=== PATIENT | female | born 1955 | race Caucasian/White ===

== ENCOUNTER 2022-06-19 06:47 | Inpatient (IN) | payer OTHER, SELFPAY ==
[2022-06-19] VITALS (13 sets, daily range): BP systolic 116–154; BP diastolic 71–87; PULSE 86–97; RESP 16; TEMP 36.4–36.9; O2SAT 87–100; BMI 29.2
--- NOTE | 2022-06-19 01:21 | HP.PCM.HOS_ITS ---
HPI - General General Date of Admission: 06/19/22 Date of Service: 06/19/22 Chief Complaint: right hip pain, mechanical fall HPI Narrative JACK JIMENEZ, is a 66 F with no significant PMH who presents via the ED on 06/19/2022 with a complaint of mechanical fall and right hip pain. SHe was washing off her front steps, and tripped and fell. She landed on her right hip and had subsequent pain and inability to ambulate. She denied any lightheade dness, palpitations, dizziness, nausea, vomiting or diarrhea. She went to an outside hospital ED where imaging done showed a right femoral neck fracture. CBC done was significant for wbc of 19k, but there was no clear evidence of infection with normal urinalysis and no fever or chills. Review of systems was otherwise negative. She was transferred to [facility] for orthopedic evaluation. OS ED spoke to Dr Bob who agreed to see the patient once admitted at [facility]. Vitals in the ED were BP of 154/71, WI of 88, RR of 16 and temp of 98.4F, with patient saturating at 100% on room air. She is being admitted to be managed for right femoral neck fracture due to mechanical fall. [facility] Home Medications famotidine 20 mg tablet (Pepcid) 20 mg PO DINNER GERD 06/19/22 [History Last Taken 06/17/22] naproxen sodium 220 mg capsule (Aleve) 220 mg PO DAILY pain 06/19/22 [History Last Taken 06/18/22] Allergy/AdvReac Type Severity Reaction Status Date / Time Penicillins Allergy Anaphylaxis Verified 06/19/22 01:29 Social History Smoking Status: Current every day smoker tobacco type: cigarettes ROS Constitutional Constitutional: Denies anorexia, chills, fatigue, fever(s), malaise or weakness Eyes Eyes: Denies change in vision ENT HEENT: Denies dysphagia, headache(s) or sore throat Cardiovascular Cardiovascular: Denies chest pain, dyspnea on exertion, edema, lightheadedness, orthopnea, palpitations, paroxysmal nocturnal dyspnea, rapid heart rate or syncope Respiratory/Chest Respiratory/Chest: Denies productive cough, shortness of breath at rest or shortness of breath with exertion Gastrointestinal Gastrointestinal: Denies abdominal pain, constipation, diarrhea, dyspepsia, nausea or vomiting Genitourinary Genitourinary: Denies burning urination, dysuria, urinary frequency or urinary hesitancy Musculoskeletal Musculoskeletal: Denies arthralgias or joint pain Neurologic Neurologic: Denies confusion, dizziness, focal weakness, headache(s), numbness or seizures Psychiatric Psychiatric: Denies anxiety Endocrine Endocrinology: Denies change in body appearance Hematologic/Lymphatic Hematologic/Lymphatic: Denies anemia Physical Exam Const alert, oriented x3 and no apparent distress General Appearance: cooperative HEENT normocephalic, head/scalp atraumatic, hearing grossly normal bilaterally and moist oral mucous membranes Mouth: oral and palatal mucosa normal Eyes PERRL, EOMs intact bilaterally and conjunctivae normal Neck no lymphadenopathy and supple Resp normal respiratory effort and clear to auscultation bilaterally Cardio regular rate, regular rhythm, S1 normal heart sound, S2 normal heart sound and no murmurs GI normal to inspection, nondistended, normoactive bowel sounds, soft to palpation and non-tender Extremity Extremity Narrative: RLE shortened, externally rotated. Unable to flex or extend RLE at hip Neuro oriented x3 and CN's II-XII intact bilaterally Sensorium / Orientation: awake Psych affect normal Assessment & Plan Assessment/Plan (1) Fracture of femoral neck, right: (2) Fall: PLAN: Plan #Right femoral neck fracture due to mechanical fall * admit to med surg * check CBC, BMP * doesnt have any significant PMH and hasnt seen a doctor in years * hydrate gently with IVF * PT/OT consult * orthopedic surgery consulted * keep NPO, for likely surgery later today * PO tylenol, PO oxycodone and IV morphine prn for pain * NSQIP risk calculator shows a below average risk of serious complication or cardiac complication. Patient risk stratified for surgery at low to moderate risk. * #Elevated BP * BP in the 150s. Not a known hypertensive * pain may also be playing a role * IV hydralazine prn * if BP remains elevated, to start oral BP meds * #Debility due to mechanical fall * as above * PT/OT consulted. Fall precautions * DVT prophylaxis: lovenox Code status: full code * Patient counseled extensively about different types of CODE STATUS including full code, DNR CCA and DNR CCA. Patient elects to be full code. * Total [id number] time 16 minutes. Charges/Coding Visit Charges Inpatient E&M: 60510 Init Hosp L3 Procedures Hospitalists Procedures: 78689 Advncd Care Plan 30 Min
[2022-06-19 02:09] LABS: Absolute Lymphocyte Count 1.57 X10^3/uL (0.83-4.51); Absolute Neutrophil Count 8.6 X10^3/uL (2.0-7.7); Basophil# 0.02 X10^3/uL; Basophil% 0.2 % (0-1); Eosinophil# 0.03 X10^3/uL; Eosinophils% 0.3 % (0-5); Hematocrit 36.9 % (37-47); Hemoglobin 12.4 g/dL (12.0-15.0); Lymphocyte # 1.57 X10^3/ul (0.83-4.51); Lymphocyte % 14.4 % (19-41); Mean Corp Hgb Conc 33.6 g/dL (32-36); Mean Corpuscular Hgb 29.4 pg (27.0-32.0); Mean Corpuscular Volume 87.4 fL (81-99); Monocyte% 6.4 % (0-10); NRBC Flagged by Analyzer 0 % (0-5); Neutrophil # 8.55 X10^3/uL (2.7-7.7); Neutrophil % 78.2 % (47-70); Platelet Count 297 K/mm3 (150-450); RBC Distribution Width CV 14.2 % (11.6-14.6); RBC Distribution Width SD 45.3 fl (35.1-43.9); Red Blood Count 4.22 M/mm3 (4.2-5.4); White Blood Count 10.9 K/mm3 (4.4-11.0)
[2022-06-19] MEDS: Morphine 2 MG/ML Syringe IV ×3 (02:39→10:29)
[2022-06-19] MEDS: 0.9% Normal Saline 1,000 ML 125 ML IV ×2 (02:39→10:05)
[2022-06-19 02:41] LABS: Anion Gap 7 (5-15); BUN 14 mg/dL (7-18); BUN/Creat Ratio 27.6 RATIO (10-20); Calcium,Total 8.9 mg/dL (8.5-10.1); Chloride 109 mmol/L (98-107); Creatinine, Serum 0.51 mg/dL (0.55-1.02); EST Glomerular Filtration Rate 130 mL/min (>60); Est Glom Filt Rate - Afr Amer 157 mL/min (>60); Estimated Creatinine Clearance 108.37 ml/min; Glucose 122 mg/dL (74-106); Potassium 3.5 mmol/L (3.5-5.1); Sodium Level 139 mmol/L (136-145)
[2022-06-19 04:10] LABS: Absolute Lymphocyte Count 1.09 X10^3/uL (0.83-4.51); Absolute Neutrophil Count 8.9 X10^3/uL (2.0-7.7); Basophil# 0.02 X10^3/uL; Basophil% 0.2 % (0-1); Eosinophil# 0.02 X10^3/uL; Eosinophils% 0.2 % (0-5); Hemoglobin 12.3 g/dL (12.0-15.0); Lymphocyte # 1.09 X10^3/ul (0.83-4.51); Lymphocyte % 10.2 % (19-41); Mean Corp Hgb Conc 33.2 g/dL (32-36); Mean Corpuscular Hgb 29.1 pg (27.0-32.0); Mean Corpuscular Volume 87.7 fL (81-99); Monocyte# 0.64 X10^3/uL; NRBC Flagged by Analyzer 0 % (0-5); Neutrophil # 8.93 X10^3/uL (2.7-7.7); Neutrophil % 83.1 % (47-70); Platelet Count 293 K/mm3 (150-450); RBC Distribution Width CV 14.2 % (11.6-14.6); RBC Distribution Width SD 45.7 fl (35.1-43.9); Red Blood Count 4.22 M/mm3 (4.2-5.4); White Blood Count 10.7 K/mm3 (4.4-11.0)
[2022-06-19 04:25] LABS: Anion Gap 8 (5-15); BUN 13 mg/dL (7-18); BUN/Creat Ratio 31.2 RATIO (10-20); Calcium,Total 8.4 mg/dL (8.5-10.1); Chloride 108 mmol/L (98-107); Creatinine, Serum 0.42 mg/dL (0.55-1.02); EST Glomerular Filtration Rate 163 mL/min (>60); Est Glom Filt Rate - Afr Amer 197 mL/min (>60); Estimated Creatinine Clearance 131.59 ml/min; Glucose 122 mg/dL (74-106); Potassium 3.4 mmol/L (3.5-5.1); Sodium Level 139 mmol/L (136-145)
--- NOTE | 2022-06-19 06:00 | EKG12_ITS ---
Test Reason : AM EKG Blood Pressure : / mmHG Vent. Rate : 092 BPM Atrial Rate : 092 BPM P-R Int : 150 ms QRS Dur : 084 ms QT Int : 366 ms P-R-T Axes : 056 016 047 degrees QTc Int : 452 ms Normal sinus rhythm Normal ECG No previous ECGs available Confirmed by JAYDON FERNANDEZ, KALI ([id number]), greeting card editor MACHO MEJÍA ([id number]) on 06/20/2022 9:20:42 AM Referred By: Confirmed By:KALI INTERIANO MD
[2022-06-19] MEDS: Potassium Chloride Oral Tablet 20 MEQ 40 MEQ PO (10:05)
[2022-06-19] MEDS: oxyCODONE 5 MG Tablet PO (10:11)
--- NOTE | 2022-06-19 10:20 | CASEMGMT ---
COLLEEN PADILLA Face to Face with patient for initial transition planning/care coordination assessment. RN CM introduced self and role at [facility]. Patient lying in bed, alert and oriented. Patient willing to participate in assessment and is able to answer all questions appropriately. Care providers, pharmacy, and demographics verified. Patient wishes to discharge to rehab unit or SNF for additional rehab. Patient states she has no further needs or concerns at this time. SW updated regarding requests for RU vs SNF. CM to follow for discharge planning needs that may arise. PCP: Domingo Specialists: none Preferred Pharmacy: [facility] Insurance: UMR Prescription Benefit: yes Living Will/HPOA: none LNOK: father, brother, sister Living Arrangements: Patient lives alone [place] with 12 steps and no railing to enter. Patient states she was independent at home. Transportation: slef, brother, sister DME/HHC: Patient states she has cane, walker, and access to wheelchair. Patient denies previous HHC or SNF. Disposition Plan: TBD pending course of treatment and progress with therapy. Anticipate RU vs SNF. Ban VALENTINN, RN, CM
--- NOTE | 2022-06-19 13:30 | HIP_PTH ---
PATIENT: JACK JIMENEZ LOC: MS3 U#:[id number] AGE/SX: 66/F ROOM: RI318 RE06/19/[address]: Dr. Emily Alvarez MD : 1955 BED: 1 DIS: 06/20/2022 SPEC #: [id number] RECD: 06/20/22 07:50 STATUS: CAITLIN MANDEL #: [id number] MILVIA: 06/19/22 13:[address]: Gerardo Bob DEPT: SURGICAL PATHOLOGY RECD BY: Irene Holder ENTERED: 06/20/22 08:06 SP TYPE: TOTAL HIP OTHR DR: MD Dr. Jesus Miller DO Dr. Joseph Borruso, DO Dr. Nana Yaa Koram, MD Tissues: Hip, NOS Procedures: Decalcification bone/plaque Surgery Specimen Level IV Comments: @ Ordering doctor for DEC edited from to DR.JBORRU Núñez by RAFA at 06/20/22 1309 @ Ordering doctor for SUV edited from to DR.JBORRU Núñez by RAFA at 06/20/22 1309 @ Submitting doctor edited from to DR.JBORRU Wilton CRAIG at 06/20/22 1307 HEADER OPERATION: Right hip hemiarthroplasty PRE-OP DIAGNOSIS: Fracture of right femoral neck TISSUE SUBMITTED: Right femoral head MICROSCOPIC DIAGNOSIS Bone and tissue of right hip, total hip resection: Consistent with organizing fracture callous. AM:dottie 06/23/2022 MICROSCOPIC DESCRIPTION Slides are reviewed. GROSS DESCRIPTION Received is one container labeled with the patient's name and designated right femoral head. The specimen consists of a hendrickson femoral head measuring 4.5 x 4.5 x 3 cm. The articular surface is smooth. Resection margin is irregular and hemorrhagic. Also present in the specimen container are three variable sized detached pieces of bone measuring in aggregate 5 x 4.5 x 2 cm. Accounting Specialist sections are submitted in two cassettes after decalcification as follows: 1 - detached pieces of bone, 2 - femoral head. / RUDI:dottie 06/20/2022 TC:5 CPT: 40874, 66593
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
[2022-06-19] MEDS: Lactated Ringers 1,000 ML 125 ML IV ×2 (15:30→21:07)
--- NOTE | 2022-06-19 15:54 | PCM.OP.BLANK ---
Operative Report Date of Procedure: 06/19/22 Preoperative diagnosis: Right hip femoral neck fracture displaced Postoperative diagnosis: Same Procedure: Right hip hemiarthroplasty Implants: Driftwood Accolade II stem size 7 132 degree neck angle -3 neck length 49 mm outer diameter bipolar head Anesthesia: General l EBL: 250 cc Complications: None Condition: Stable to PACU Indication for procedure: This is a 66-year-old female patient status post ground-level fall after tripping on a hose went to [facility] and request to be transferred to [facility] for definitive care of her displaced right femoral neck fracture. plans for definitive hemiarthroplasty were discussed including risks benefits and alternatives of the procedure were reviewed with the patient including risk of bleeding infection nerve artery tissue damage need for further surgery continue pain postoperative hip precaution restrictions leg length discrepancy and dislocation. Procedure: Patient was met in the preoperative holding area once again the operative extremity was identified by both patient and physician and was marked. Patient was met by anesthesia and brought to the operating room where anesthesia was started . The patient was then positioned in the lateral decubitus position on a well-padded pegboard with an axillary roll. All bony prominences were checked and padded. The patient was prepped and draped in the usual sterile fashion. A timeout was called to ensure the proper patient procedure and extremity were being contemplated. Anatomic landmarks were palpated and marked for a standard posterior lateral approach. A timeout was called to ensure the proper patient procedure and extremity were being contemplated. A 10 blade scalpel was used to make a posterior incision through the skin and subcutaneous tissue. In retractors were used and electrocautery was used to maintain meticulous hemostasis and dissect full-thickness flaps until the gluteal fascia was reached. The gluteal fascia was incised in line with the gluteal fibers. The bursal tissue was then freed from the underside and a Charnley retractor was placed. The fatpad was elevated off of the external rotators with electrocautery and the external rotators were dissected off of the greater trochanter including the piriformis and were tagged with #1 Ethibond for later repair. The joint capsule opened with posterior trapdoor technique. A femoral neck cutting guide was used to vasile the neck with a Bovie and an oscillating saw was used to complete the femoral neck cut. the fracture was visualized and with the use of a corkscrew and a skid the femoral head was removed and sized. We then trialed with the matching sizes . Hohmann was placed around the lesser trochanter. A femoral elevator was used. As well as a pointed wide Hohmann around the lesser trochanter and a Hohmann to help retract the gluteus medius. A box chisel was used to remove excess lateral neck followed by a canal finder and a lateralizing reamer. This was followed by sequential broaches. Attention was made of the version within the canal. Once the final broach was seated we then trialed and reduced the hip it was determined that a 132 degree neck angle with a -3 neck length was the appropriate size. We then checked stability with shuck testing as well as flexion and interminal rotation then proceeded with hip extension and checked leg lengths at the knees and heels. At this point trials were removed. The femoral stem was inserted. We re-trialed and then proceeded to impact the femoral head onto the Arturo taper. We then surgically reduce the hip check stability again and leg lengths and were satisfied. irricept rinse was allowed to sit for 1 minutes while everyone changed their gloves. Thorough irrigation was performed. Followed by closure of the external rotators with #2 FiberWire followed by closure of gluteal fascia with #1 Ethibond. 0 Vicryl fat stitches and 2-0 Vicryl subcutaneous stitches and ernestina in the skin. Dressing was applied in the form of silverlon dressing and an abduction pillow was placed. Patient tolerated the procedure well there was no intraoperative complications all counts were correct and the patient was brought back to the PACU in stable condition
--- NOTE | 2022-06-19 16:40 | RAD_ITS ---
STUDY: X-RAY - PELVIS AND RIGHT HIP REASON FOR EXAM: Female, 66 years old. Post Op -- AP both hips on single incky/lateral of op hip PACU TECHNIQUE: XR Hip Unilateral with Pelvis when performed; 2-3 Views COMPARISON: None. FINDINGS: There is no fracture or dislocation. There is anatomic alignment. The soft tissue planes are preserved. Total hip arthroplasty. Skin ernestina are seen along the anterior lateral aspect of the hip. There is an air-fluid level seen in the operative site. Joint space is preserved. Subcutaneous air is noted. There is a metal sideplate transfixing the left acetabulum, symphysis pubis, and left iliac bone. There are cortical screws holding the plate in place. RAD/Hip Min 2 Views (Portable) IMPRESSION: Successful total hip arthroplasty. Electronically Signed: Catracho Vasquez MD at 17:12 EDT ,
[2022-06-19] MEDS: Famotidine 20 MG Tablet PO (18:17)
[2022-06-19] MEDS: Calcium Carbonate 500 MG Tablet PO (18:20)
[2022-06-20 02:19] VITALS: BP 150/86; PULSE 87; RESP 18; TEMP 36.6; O2SAT 92
[2022-06-20 02:23] VITALS: BMI 29.2
[2022-06-20] MEDS: 0.9% Saline Lock 10 ML Syringe IV ×2 (02:24→06:19)
[2022-06-20] MEDS: oxyCODONE 5 MG Tablet PO ×2 (02:24→08:16)
[2022-06-20 06:13] VITALS: BMI 29.2
[2022-06-20] MEDS: APIXABAN 2.5 MG TABLET PO (06:20)
[2022-06-20 08:04] VITALS: BP 142/82; PULSE 100; RESP 18; TEMP 36.9; O2SAT 94
[2022-06-20] MEDS: Calcium Carbonate 500 MG Tablet PO ×3 (08:17→16:53)
[2022-06-20 08:21] LABS: Absolute Lymphocyte Count 1.53 X10^3/uL (0.83-4.51); Absolute Neutrophil Count 8.6 X10^3/uL (2.0-7.7); Basophil# 0.03 X10^3/uL; Basophil% 0.3 % (0-1); Eosinophil# 0.06 X10^3/uL; Eosinophils% 0.5 % (0-5); Hematocrit 31.3 % (37-47); Hemoglobin 10.1 g/dL (12.0-15.0); Lymphocyte # 1.53 X10^3/ul (0.83-4.51); Lymphocyte % 13.4 % (19-41); Mean Corp Hgb Conc 32.3 g/dL (32-36); Mean Corpuscular Hgb 28.9 pg (27.0-32.0); Mean Corpuscular Volume 89.7 fL (81-99); Mean Platelet Vol. 9.3 fl (6.2-12.0); Monocyte# 1.11 X10^3/uL; Monocyte% 9.7 % (0-10); NRBC Flagged by Analyzer 0 % (0-5); Neutrophil # 8.63 X10^3/uL (2.7-7.7); Neutrophil % 75.7 % (47-70); Platelet Count 258 K/mm3 (150-450); RBC Distribution Width CV 14.1 % (11.6-14.6); Red Blood Count 3.49 M/mm3 (4.2-5.4); White Blood Count 11.4 K/mm3 (4.4-11.0)
[2022-06-20 08:50] LABS: ALB/GLOB Ratio 0.7 RATIO (0.9-2.4); AST(SGOT) 20 U/L (15-37); Alanine Aminotransfer ALT/SGPT 17 U/L (13-56); Albumin, Serum 2.7 g/dL (3.2-5.0); Alkaline Phosphatase 79 U/L (45-117); Anion Gap 7 (5-15); BUN 7 mg/dL (7-18); BUN/Creat Ratio 13.2 RATIO (10-20); Calcium,Total 8.7 mg/dL (8.5-10.1); Chloride 107 mmol/L (98-107); Creatinine, Serum 0.53 mg/dL (0.55-1.02); EST Glomerular Filtration Rate 123 mL/min (>60); Est Glom Filt Rate - Afr Amer 149 mL/min (>60); Estimated Creatinine Clearance 104.28 ml/min; Globulin 3.8 g/dL (2.2-4.2); Glucose 105 mg/dL (74-106); Potassium 4.2 mmol/L (3.5-5.1); Protein, Total 6.5 g/dL (6.4-8.2); Sodium Level 138 mmol/L (136-145)
[2022-06-20 10:13] VITALS: BMI 29.2
--- NOTE | 2022-06-20 10:33 | PN.HOSP_ITS ---
Subjective Subjective Follow-up on right hip fracture, status post hemiarthroplasty: Patient was seen and examined. Her pain is fairly controlled. Denied any new complaints. She was able to walk to the bathroom today. Objective Data Objective Data Vital Signs: Vital Signs Temp Pulse Resp BP Pulse Ox O2 Del Method O2 Flow Rate 98.5 F 100 18 142/82 H 94 Room Air 2 06/20/22 08:04 06/20/22 08:04 06/20/22 08:04 06/20/22 08:04 06/20/22 08:04 06/20/22 08:35 06/19/22 22:30 Oxygen Flow Rate (L/min) 2 Oxygen Delivery Method Room Air Weight: 84.6 kg Body Mass Index (BMI) 29.2 Intake & Output: Intake and Output for Last 24 Hours 06/18/22 06/19/22 06/20/22 23:59 23:59 23:59 Intake Total 3731.25 / 4131.25 1850 / 1850 Output Total 1250 / 1550 1300 / 1300 Balance 2481.25 / 2581.25 550 / 550 Lab / Micro Data Result Diagrams: 06/20/22 08:11 06/20/22 08:11 Labs: Laboratory Results - last 24 hr 06/20/22 08:11: WBC 11.4 H, RBC 3.49 L, Hgb 10.1 L, Hct 31.3 L, MCV 89.7, MCH 28.9, MCHC 32.3, RDW Std Deviation 46.0 H, RDW Coeff of Anette 14.1, Plt Count 258, MPV 9.3, Immature Gran % (Auto) 0.400, Neut % (Auto) 75.7 H, Lymph % (Auto) 13.4 L, [place] % (Auto) 9.7, Eos % (Auto) 0.5, Baso % (Auto) 0.3, Absolute Neuts (auto) 8.6 H, Absolute Lymphs (auto) 1.53, Nucleated RBC % 0 06/20/22 08:11: Sodium 138, Potassium 4.2, Chloride 107, Carbon Dioxide 24.0, Anion Gap 7, BUN 7, Creatinine 0.53 L, Estim Creat Clear Calc 104.28, Est GFR (MDRD) Af Amer 149, Est GFR (MDRD) Non-Af 123, BUN/Creatinine Ratio 13.2, Glucose 105, Calcium 8.7, Total Bilirubin 0.70, AST 20, ALT 17, Alkaline Phosphatase 79, Total Protein 6.5, Albumin 2.7 L, Globulin 3.8, Albumin/Globulin Ratio 0.7 L Radiography Diagnostic Testing: Radiology Impression Hip X-Ray 06/19/22 16:40 IMPRESSION: Successful total hip arthroplasty. Electronically Signed: Catracho Vasquez MD at 17:12 EDT Reading Location ID and State: [facility] / [place] , Service support , Physical Exam Narrative Physical exam: General: Alert, Oriented x3, Cooperative, No apparent distress HEENT: Atraumatic Oral: Moist Mucosa Neck: Supple Lungs: Clear to auscultation Cardiovascular: HS I+II, regular, no murmurs Abdomen: Bowel Sounds Present, Soft, Non Tender Extremities:Tenderness in right hip area, cooling mat over the right hip Skin: No rashes, No breakdown Neurological: Grossly intact Psych/Mental Status: Appropriate Assessment & Plan Assessment/Plan (1) Fracture of femoral neck, right: PLAN: Plan 1. Postop day #1 status post right hip hemiarthroplasty for femoral neck fracture, mechanical, traumatic, status post fall Pain is fairly controlled, continue with PT and OT evaluation as well orthopedic recommendations 2. GERD, on famotidine 3. DVT PPx- Eliquis Charges/Coding Visit Charges Inpatient E&M: 56400 Subs Hosp L2
--- NOTE | 2022-06-20 10:55 | PCM.PN.ORT ---
Subjective Subjective Patient seen and examined doing well no fevers chills nausea vomiting shortness of breath or chest pain. Ambulated some in surgery. Objective Data Objective Data Vital Signs: Vital Signs Temp Pulse Resp BP Pulse Ox O2 Del Method O2 Flow Rate 98.5 F 100 18 142/82 H 94 Room Air 2 06/20/22 08:04 06/20/22 08:04 06/20/22 08:04 06/20/22 08:04 06/20/22 08:04 06/20/22 08:35 06/19/22 22:30 Oxygen Flow Rate (L/min) 2 Oxygen Delivery Method Room Air Weight: 186 lb 8.177 oz Body Mass Index (BMI) 29.2 Intake & Output: Intake and Output for Last 24 Hours 06/18/22 06/19/22 06/20/22 23:59 23:59 23:59 Intake Total 3731.25 / 4131.25 1850 / 1850 Output Total 1250 / 1550 1300 / 1300 Balance 2481.25 / 2581.25 550 / 550 Lab / Micro Data Result Diagrams: 06/20/22 08:11 06/20/22 08:11 Labs: Laboratory Results - last 24 hr 06/20/22 08:11: WBC 11.4 H, RBC 3.49 L, Hgb 10.1 L, Hct 31.3 L, MCV 89.7, MCH 28.9, MCHC 32.3, RDW Std Deviation 46.0 H, RDW Coeff of Anette 14.1, Plt Count 258, MPV 9.3, Immature Gran % (Auto) 0.400, Neut % (Auto) 75.7 H, Lymph % (Auto) 13.4 L, [place] % (Auto) 9.7, Eos % (Auto) 0.5, Baso % (Auto) 0.3, Absolute Neuts (auto) 8.6 H, Absolute Lymphs (auto) 1.53, Nucleated RBC % 0 06/20/22 08:11: Sodium 138, Potassium 4.2, Chloride 107, Carbon Dioxide 24.0, Anion Gap 7, BUN 7, Creatinine 0.53 L, Estim Creat Clear Calc 104.28, Est GFR (MDRD) Af Amer 149, Est GFR (MDRD) Non-Af 123, BUN/Creatinine Ratio 13.2, Glucose 105, Calcium 8.7, Total Bilirubin 0.70, AST 20, ALT 17, Alkaline Phosphatase 79, Total Protein 6.5, Albumin 2.7 L, Globulin 3.8, Albumin/Globulin Ratio 0.7 L Radiography Diagnostic Testing: Radiology Impression Hip X-Ray 06/19/22 16:40 IMPRESSION: Successful total hip arthroplasty. Electronically Signed: Catracho Vasquez MD at 17:12 EDT Reading Location ID and State: [facility] / [place] , Service support , Physical Exam Const alert, oriented x3 and no apparent distress Extremity Extremity Narrative: Right hip dressing clean dry and intact compartments soft neurovascular intact EHL tibialis anterior gastrocsoleus intact sensation light touch palpable pedal pulses right lower extremity Assessment & Plan Assessment/Plan (1) Fracture of femoral neck, right: PLAN: Plan Postop day #1 right hip hemiarthroplasty for femoral neck fracture Eliquis 2.5 mg twice daily for 4 weeks postop SCDs RAJ hose Dressing to be left on and undisturbed for 7 days postop then may remove prior to first shower should have incision clean daily with antibacterial soap at that point and replaced with dry dressing daily PT OT weightbearing as tolerated with hip precautions Follow-up in the office 2 weeks postop for wound check staple removal Should start outpatient PT JANE if being discharged home Oxycodone 5 to 10 mg every 4 hours as needed pain
[2022-06-20 14:13] VITALS: BMI 29.2
--- NOTE | 2022-06-20 14:28 | CASEMGMT ---
Addendum entered by Carolin Yip 06/20/22 15:38: Precert obtained and physician updated. Plan to d/c today. Pt updated and agreeable. Nursing updated. Disposition: [facility] Addendum entered by Carolin Yip 06/20/22 14:41: Social work [facility] is able to accept pt. Pt updated and agreeable. Precert has been started. Plan: [facility], pending precARIS Jamison Original Note: Social Work SW met with pt and introduced self and role of SW. SW discussed discharge plans and how pt did with therapy today. Pt does not feel she can return home at this time but will need short term rehab. A list of Inpatient Rehab and SNF providers including quality and resource use data and consistent with the patient?s preferred geographic region, medical needs, and insurance network were provided from the [employer] Guide. Pt preferred provider is [facility]. Referral made to [facility]. Pt will need precertification. Plan: [facility] Inpatient Rehab, pending acceptance and precert [facility]
[2022-06-20 15:17] VITALS: BP 131/73; PULSE 104; RESP 18; TEMP 37; O2SAT 94
--- NOTE | 2022-06-20 15:29 | DCINST_ITS ---
Discharge Instructions Diet Discharge Diet: No restrictions Activity Discharge Activity: Return to Normal Activity Weight Bearing Status: Weight bearing as tolerated Follow Up Care Test Results: Test results from this visit will be discussed in further detail at your follow- up appointment, if applicable. Discharge Plan Admission Admit Date/Time: 06/19/22 06:47 Primary Reason for Your Visit: Acute hip fracture Attending Provider: Emily Alvarez Primary Care Provider: Jesus Lane Consulting Providers: Gerardo Bob ; Marie Patrick Instructions Additional Instructions / Restrictions: Eliquis 2.5 mg twice daily for 4 weeks postop SCDs RAJ hose Dressing to be left on and undisturbed for 7 days postop then may remove prior to first shower should have incision clean daily with antibacterial soap at that point and replaced with dry dressing daily PT OT weightbearing as tolerated with hip precautions Follow-up in the office 2 weeks postop for wound check staple removal Discharge Orders/Prescriptions Prescriptions: No Action famotidine [Pepcid] 20 mg Tablet 20 mg PO DINNER naproxen sodium [Aleve] 220 mg Capsule 220 mg PO DAILY Referrals / Follow Up: Jesus Lane DO [Primary Care Provider] - Gerardo Bob DO [Med Staff - Active Staff] - Within 2 Weeks Disposition Disposition (needs filled in before D/C Order can be placed): Inpatient Rehab Unit/Facility
--- NOTE | 2022-06-20 15:31 | DS.PCM_ITS ---
Providers Date of Admission: 06/19/22 Date of Discharge: 06/20/22 Primary Care Physician: Dr. Jesus Lane, Consultations 06/19/22 01:42 Consult: Orthopedics Routine Consulting Provider: Gerardo Bob Reason for Consult: right hip fracture due to mechanical fall EMERGENT Consult: No MD Notified: Yes Date Notified: 06/19/22 Time Notified: 01:43 Method of Notification: Text Reason For Visit: R HIP FRACTURE Diagnosis Discharge Diagnosis (1) Fracture of femoral neck, right: Status: Acute Code(s): S72.001A - Fracture of unspecified part of neck of right femur, initial encounter for closed fracture Plan 1. Acute right hip fracture 2. GERD Medications at Discharge Home Medications famotidine 20 mg tablet (Pepcid) 20 mg PO DINNER GERD 06/19/22 naproxen sodium 220 mg capsule (Aleve) 220 mg PO DAILY pain 06/19/22 apixaban 2.5 mg tablet (Eliquis) 2.5 mg PO BID #0 tabs 06/20/22 oxycodone 5 mg tablet 5 mg PO Q4H PRN PRN Pain Score 4-5 #0 tabs 06/20/22 Hospital Course Operations None and total hip replacement (right, 06/19/22) Procedures None Summary of Care Provided Minutes Spent on Discharge: 45 Hospital Course: 66-year-old female with past medical history of GERD who comes in after a fall and experienced severe right hip pain. Patient stated that she was washing her front steps when she tripped and fell and landed on her right hip. She had sudden severe pain and inability to move. She was seen in outside hospital where x-ray showed right femoral neck fracture. She was transferred to [facility] for orthopedic evaluation. Patient was admitted to the [facility] floor, pain controlled. Orthopedics was consulted in emergency room. She underwent right hip hemiarthroplasty. Patient was seen by PT and OT and skilled for discharge to acute rehab. Physical Exam Narrative See progress note on the day Weight / BMI Weight Weight: 84.6 kg Body Mass Index (BMI) 29.2 ABG / Lab / Microbiology Data Result Diagrams: 06/20/22 08:11 06/20/22 08:11 Laboratory: Laboratory Results - last 24 hr 06/20/22 08:11: WBC 11.4 H, RBC 3.49 L, Hgb 10.1 L, Hct 31.3 L, MCV 89.7, MCH 28.9, MCHC 32.3, RDW Std Deviation 46.0 H, RDW Coeff of Anette 14.1, Plt Count 258, MPV 9.3, Immature Gran % (Auto) 0.400, Neut % (Auto) 75.7 H, Lymph % (Auto) 13.4 L, [place] % (Auto) 9.7, Eos % (Auto) 0.5, Baso % (Auto) 0.3, Absolute Neuts (auto) 8.6 H, Absolute Lymphs (auto) 1.53, Nucleated RBC % 0 06/20/22 08:11: Sodium 138, Potassium 4.2, Chloride 107, Carbon Dioxide 24.0, Anion Gap 7, BUN 7, Creatinine 0.53 L, Estim Creat Clear Calc 104.28, Est GFR (MDRD) Af Amer 149, Est GFR (MDRD) Non-Af 123, BUN/Creatinine Ratio 13.2, Glucose 105, Calcium 8.7, Total Bilirubin 0.70, AST 20, ALT 17, Alkaline Phosphatase 79, Total Protein 6.5, Albumin 2.7 L, Globulin 3.8, Albumin/Globulin Ratio 0.7 L Radiography Diagnostic Testing: Radiology Impression Hip X-Ray 06/19/22 16:40 IMPRESSION: Successful total hip arthroplasty. Electronically Signed: Catracho Vasquez MD at 17:12 EDT Reading Location ID and State: [address] [place] [address] , Service support , D/C Instructions Discharge Diet: No restrictions Weight Bearing Status: Weight bearing as tolerated Meaningful Use Info Meaningful Use Diagnoses (Choose all that apply): None applicable Discharge Plan Admission Admit Date/Time: 06/19/22 06:47 Primary Reason for Your Visit: Acute hip fracture Attending Provider: Emily Alvarez Primary Care Provider: Jesus Lane Consulting Providers: Gerardo Bob ; Marie Patrick Instructions Additional Instructions / Restrictions: Eliquis 2.5 mg twice daily for 4 weeks postop SCDs RAJ hose Dressing to be left on and undisturbed for 7 days postop then may remove prior to first shower should have incision clean daily with antibacterial soap at that point and replaced with dry dressing daily PT OT weightbearing as tolerated with hip precautions Follow-up in the office 2 weeks postop for wound check staple removal Discharge Orders/Prescriptions Prescriptions: New Eliquis 2.5 mg Tablet 2.5 mg PO BID Qty: 0 0RF oxycodone 5 mg Tablet 5 mg PO Q4H PRN PRN (Reason: Pain Score 4-5) Qty: 0 0RF Continued famotidine [Pepcid] 20 mg Tablet 20 mg PO DINNER naproxen sodium [Aleve] 220 mg Capsule 220 mg PO DAILY Referrals / Follow Up: Jesus Lane DO [Primary Care Provider] - Gerardo Bob DO [Med Staff - Active Staff] - Within 2 Weeks Disposition Disposition (needs filled in before D/C Order can be placed): Inpatient Rehab Unit/Facility Charges/Coding Visit Charges Inpatient E&M: 54705 Disch Hosp
--- NOTE | 2022-06-20 16:35 | NURSING ---
Called report to Cheli MACIAS in Rehab unit. Pt will go to room 7 and can be sent anytime.
[2022-06-20] MEDS: Famotidine 20 MG Tablet PO (16:53)
== END 2022-06-20 17:04 | DRG 522 ==
PROVIDERS: Orthopaedic Surgery; Admitting Provider Student in an Organized Health Care Education/Training Program; PCP Family Medicine; Visit Provider Internal Medicine
PROC: 0SRR0JA Replacement of Right Hip Joint, Femoral Surface with Synthetic Substitute, Uncemented, Open Approach (ICD-10-PCS; CPT 27125; principal; 2022-06-19 13:10)
DX: S72.001A Fracture of unspecified part of neck of right femur, initial encounter for closed fracture (principal); F17.210 Nicotine dependence, cigarettes, uncomplicated; K21.9 Gastro-esophageal reflux disease without esophagitis; W01.10XA Fall on same level from slipping, tripping and stumbling with subsequent striking against unspecified object, initial encounter; Y92.007 Garden or yard of unspecified non-institutional (private) residence as the place of occurrence of the external cause; Y93.H9 Activity, other involving exterior property and land maintenance, building and construction; R03.0 Elevated blood-pressure reading, without diagnosis of hypertension; R53.81 Other malaise; Z79.899 Other long term (current) drug therapy
CPT/HCPCS: 36415; 73502; 80048; 80053; 85025; 86850; 86900; 86901; 88305; 88307; 88311; 93005; 97162; 97166; C1776; J7030; J7120; A4216; J2405

== ENCOUNTER 2022-06-20 17:20 | Inpatient (IN) | payer OTHER, SELFPAY ==
[2022-06-20 17:51] VITALS: BP 119/64; PULSE 111; RESP 14; TEMP 37.2; O2SAT 92; BMI 29.2
[2022-06-20 19:37] VITALS: O2SAT 96
[2022-06-20 20:05] VITALS: BP 130/67; PULSE 109; RESP 18; TEMP 36.6; O2SAT 96
[2022-06-20] MEDS: oxyCODONE 5 MG Tablet PO (20:16)
[2022-06-20] MEDS: APIXABAN 2.5 MG TABLET PO (20:41)
[2022-06-20] MEDS: Senna/Docusate Sodium 1 Tablet 2 TABLET PO (20:41)
[2022-06-21] MEDS: oxyCODONE 5 MG Tablet PO ×4 (03:47→21:06)
[2022-06-21 05:53] LABS: Hematocrit 28.6 % (37-47); Hemoglobin 9.3 g/dL (12.0-15.0); Mean Corp Hgb Conc 32.5 g/dL (32-36); Mean Corpuscular Hgb 28.7 pg (27.0-32.0); Mean Corpuscular Volume 88.3 fL (81-99); Mean Platelet Vol. 10.7 fl (6.2-12.0); Platelet Count 245 K/mm3 (150-450); RBC Distribution Width CV 14.1 % (11.6-14.6); RBC Distribution Width SD 45.7 fl (35.1-43.9); Red Blood Count 3.24 M/mm3 (4.2-5.4); White Blood Count 11.9 K/mm3 (4.4-11.0)
[2022-06-21] MEDS: 0.9% Saline Lock 10 ML Syringe IV (05:59)
[2022-06-21 06:38] LABS: ALB/GLOB Ratio 0.7 RATIO (0.9-2.4); AST(SGOT) 17 U/L (15-37); Alanine Aminotransfer ALT/SGPT 16 U/L (13-56); Albumin, Serum 2.5 g/dL (3.2-5.0); Alkaline Phosphatase 81 U/L (45-117); Anion Gap 9 (5-15); BUN 9 mg/dL (7-18); BUN/Creat Ratio 18.4 RATIO (10-20); Calcium,Total 8.5 mg/dL (8.5-10.1); Chloride 104 mmol/L (98-107); Creatinine, Serum 0.49 mg/dL (0.55-1.02); EST Glomerular Filtration Rate 135 mL/min (>60); Est Glom Filt Rate - Afr Amer 163 mL/min (>60); Estimated Creatinine Clearance 112.79 ml/min; Globulin 3.8 g/dL (2.2-4.2); Glucose 126 mg/dL (74-106); Magnesium 2.1 mg/dL (1.6-2.6); Phosphorus 3.4 mg/dL (2.5-4.9); Potassium 3.7 mmol/L (3.5-5.1); Protein, Total 6.3 g/dL (6.4-8.2); Sodium Level 135 mmol/L (136-145)
[2022-06-21] MEDS: Menthol/Lanolin/Calamine/Znox 113 GM Tube 1 APPLIC TOPICAL ×2 (07:42→20:47)
[2022-06-21] MEDS: Senna/Docusate Sodium 1 Tablet 2 TABLET PO (07:42)
[2022-06-21] MEDS: APIXABAN 2.5 MG TABLET PO ×2 (07:42→20:46)
[2022-06-21] MEDS: Naproxen 250 MG Tablet PO (07:42)
[2022-06-21 09:00] VITALS: BP 115/61; PULSE 100; RESP 18; TEMP 36.8; O2SAT 95
[2022-06-21 10:00] VITALS: PULSE 101; RESP 16; O2SAT 98
--- NOTE | 2022-06-21 11:00 | PCM.HP.STD ---
HPI - General General Date of Admission: 06/20/22 Date of Service: 06/21/22 Chief Complaint: Debility due to hip fracture. HPI Narrative JACK JIMENEZ, is a 66 YO F with a PMH of GERD, tobacco dependence and OA who presented to [place] ED on 06/19/22 complaining of right hip pain after a mechanical fall. She was unable to ambulate. Imaging revealed a displaced right femoral neck fracture. She was transferred to [facility] for orthopedic evaluation by Dr. Bob and was admitted to the hospitalist service. Dr. Bob saw the pt and recommended a R hip hemiarthroplasty and Jack was in agreement. She was taken to surgery on 06/19/22. On 06/20/22 she was transferred to acute rehab for 3 hours of therapy daily to restore function at or near her level prior to the hip fracture. The EMR was reviewed. HGB dropped from 12.3 on 06/19 22 to 10.1 on 06/20/2022 due to expected blood loss with surgery and hydration (BUN/CREAT ratio at admission to [facility] was 31.2. Today the HGB is 9.3. She is complaining of reflux today.....it has been happening after Lunch. At home she takes a PPI or a H2B over the counter and sometimes uses TUMS. She is a smoker. She has tried quitting cold turkey in the past and the longest she has gone without smoking is 1 year. She tells me she likes to smoke. when I asked her why she went back to smoking in the past she told me that it helps to control the anxiety she gets at work. She sometimes has a hard time sleeping at night because she can not turn her brain off. We discussed starting a medication once a day to help control anxiety and she is agreeable to a trial of Sertraline. [facility] Medical History (Updated 06/21/22 @ 14:[address] Milana Fuentes DO) Anxiety GERD (gastroesophageal reflux disease) Rheumatoid arthritis Smoker Tobacco dependence due to cigarettes Home Medications famotidine 20 mg tablet (Pepcid) 20 mg PO DINNER GERD 06/19/22 [History Last Taken 06/17/22] naproxen sodium 220 mg capsule (Aleve) 220 mg PO DAILY pain 06/19/22 [History Last Taken 06/18/22] apixaban 2.5 mg tablet (Eliquis) 2.5 mg PO BID pain 06/20/22 [History Last Taken Unknown] oxycodone 5 mg tablet 5 mg PO Q4H PRN PRN Pain, Mild 06/20/22 [History Last Taken Unknown] Allergy/AdvReac Type Severity Reaction Status Date / Time Penicillins Allergy Anaphylaxis Verified 06/19/22 01:29 Surgical History S/P removal of ovarian cyst Status post hip surgery Social History Smoking Status: Current every day smoker tobacco type: cigarettes ROS Constitutional Constitutional: Denies anorexia, change in weight, chills, fatigue, fever(s), night sweats or weakness Eyes Eyes: Denies blurry vision, change in vision, eye pain or loss of vision ENT HEENT: Denies abnormal hearing, dysphagia, headache(s), hearing loss, nasal congestion or sore throat Cardiovascular Cardiovascular: Denies chest pain, dyspnea on exertion, edema, lightheadedness, orthopnea, palpitations, paroxysmal nocturnal dyspnea or syncope Respiratory/Chest Respiratory/Chest: Reports cough; Denies dyspnea, shortness of breath at rest, shortness of breath with exertion or wheezing Gastrointestinal Gastrointestinal: Reports other Details: Heartburn ; Denies abdominal pain, constipation, diarrhea, dyspepsia, hematemesis, hematochezia, nausea or vomiting Genitourinary Genitourinary: Denies dysuria, hematuria, nocturia, urinary frequency, urinary hesitancy, urinary incontinence or urinary urgency Musculoskeletal Musculoskeletal: Reports other Details: Pain in the R groin, buttock and and lateral hip from recent surgery. ; Denies back pain, joint pain, joint swelling or neck pain Integumentary Integumentary: Denies alopecia, jaundice, non-healing lesions or unusual bruising Neurologic Neurologic: Denies confusion, disequilibrium, dizziness, focal weakness, headache(s), paresthesias, seizures or tremor(s) Psychiatric Psychiatric: Reports anxiety; Denies depression, homicidal ideation or suicidal ideation Endocrine Endocrinology: Denies change in body appearance, polydipsia or polyuria Hematologic/Lymphatic Hematologic/Lymphatic: Denies easy bleeding, easy bruising or lymphadenopathy Allergic/Immunologic Allergic/Immunologic: Denies rhinitis, eczemia or asthma Vital Signs Vital Signs Vital Signs: 06/20/22 17:51 06/20/22 19:37 06/20/22 20:05 Temperature 98.9 F 97.9 F Temperature Source Oral Oral Pulse Rate 111 H 109 H Respiratory Rate 14 18 Respiratory Effort Respiratory Depth Respiratory Pattern Blood Pressure 119/64 130/67 H Blood Pressure Mean 82 88 Blood Pressure Source Monitor Blood Pressure Position Semi-Fowlers Blood Pressure Location Left Arm Pulse Ox 92 96 96 Oxygen Delivery Method Room Air Room Air Room Air 06/20/22 20:05 06/21/22 09:00 Temperature 98.2 F Temperature Source Temporal Pulse Rate 100 Respiratory Rate 18 Respiratory Effort Normal Respiratory Depth Normal Respiratory Pattern Normal Blood Pressure 115/61 Blood Pressure Mean 79 Blood Pressure Source Monitor Blood Pressure Position Semi-Fowlers Blood Pressure Location Right Arm Pulse Ox 95 Oxygen Delivery Method Room Air Room Air Weight Weight: 186 lb 8.177 oz Body Mass Index (BMI) 29.2 Physical Exam Const alert, oriented x3, no apparent distress, healthy appearing and well nourished General Appearance: cooperative, well kempt and well developed HEENT normocephalic and head/scalp atraumatic HEENT Narrative: Mucous membranes are dry. Eyes PERRL, EOMs intact bilaterally, conjunctivae normal and no scleral icterus Eyes Narrative: No discharge from the eye and no mattering of the eyelashes. Neck full ROM and no lymphadenopathy General: trachea midline Chest Chest: symmetrical chest wall rise Resp normal respiratory effort, normal air movement and no use of accessory muscles Effort and Inspection: able to speak in complete sentences Cardio regular rate, regular rhythm, S1 normal heart sound, S2 normal heart sound, no murmurs, no rub and no gallops GI normal to inspection, nondistended, normoactive bowel sounds, soft to palpation and non-tender GI Narrative: No guarding with palpation. She is c/o constipation and she received stool softeners and a laxative today. no CVA tenderness Extremity normal capillary refill, no calf tenderness and no pedal edema Extremity Narrative: The silver impregnated dressing which is applied postoperatively will remain on another few days before we can remove it. There is no erythema surrounding the dressing and the dressing is dry with no discharge present on the dressing. She has intact sensation to the right foot. Skin General Skin Exam: no breakdown Rashes: no rashes Neuro oriented x3, CN's II-XII intact bilaterally, moves all extremities, no focal motor deficits and no sensory deficits noted Psych mental status grossly normal, thought process normal, cooperative, affect normal, speech normal, activity/motor behavior normal, denies hallucinations, denies homicidal ideation and denies suicidal ideation Appearance: grossly normal Attitude: calm Activity / Motor Behavior: appropriate eye contact Results Lab / Micro Data Result Diagrams: 06/21/22 05:13 06/21/22 05:13 Labs: Laboratory Results - last 24 hr 06/21/22 05:13: WBC 11.9 H, RBC 3.24 L, Hgb 9.3 L, Hct 28.6 L, MCV 88.3, MCH 28.7, MCHC 32.5, RDW Std Deviation 45.7 H, RDW Coeff of Anette 14.1, Plt Count 245, MPV 10.7 06/21/22 05:13: Sodium 135 L, Potassium 3.7, Chloride 104, Carbon Dioxide 22.0, Anion Gap 9, BUN 9, Creatinine 0.49 L, Estim Creat Clear Calc 112.79, Est GFR (MDRD) Af Amer 163, Est GFR (MDRD) Non-Af 135, BUN/Creatinine Ratio 18.4, Glucose 126 H, Calcium 8.5, Phosphorus 3.4, Magnesium 2.1, Total Bilirubin 0.70, AST 17, ALT 16, Alkaline Phosphatase 81, Total Protein 6.3 L, Albumin 2.5 L, Globulin 3.8, Albumin/Globulin Ratio 0.7 L Assessment & Plan Assessment/Plan (1) Physical debility: PLAN: PT/OT (2) Tobacco dependence due to cigarettes: PLAN: She started smoking again after quitting to help control anxiety. Will start Sertraline to see if this will help her quit. She wants to quit. Smoking cessation counseling was given. (3) Acute postoperative anemia due to expected blood loss: (4) Hyponatremia: (5) Elevated fasting blood sugar: PLAN: We will check a hemoglobin A1c. (6) Fall: PLAN: Mechanical fall (7) Fracture of femoral neck, right: (8) GERD (gastroesophageal reflux disease): PLAN: Increase famotidine to twice daily. encouraged her to stop smoking because nicotine increases reflux by decreasing LES pressure. (9) Anxiety: PLAN: Start Sertraline 50 mg PO daily in the AM PLAN: Plan PLAN PT for gait stability OT for ADL's Analgesics as needed - she tells me that pain is adequately managed. Bowel protocol Fall precautions Assess for Anxiety/Depression - start Sertraline GI prophylaxis with Pepcid 20 mg p.o. twice daily DVT prophylaxis with Eliquis 2.5 mg p.o. twice daily for 4 weeks post op - DC on July 18. Follow up with PCP and Dr. Bob following DC from Rehab. I told her about the smoking cessation program at [facility] if she is unable to stop smoking. AM lab including CMP, CBC, Mag and Phos - personally reviewed. Will also order a HGBA1C. She lives by herself. Unit Exclusion This patient is an acute care inpatient being housed in the excluded unit because of capacity issues related to the disaster or emergency.: Yes Charges/Coding Visit Charges Inpatient E&M: 85353 Init Hosp L2
--- NOTE | 2022-06-21 14:11 | REHABEVAL_ITS ---
Admission Information Primary Diagnosis:: Physical debility secondary to a recent fall resulting in a right hip fracture. She had a right hemiarthroplasty. She lives alone. Status Changes from Prescreening?: No changes Identified Actual Problem List:: Skin Intergrity, Pain, ALteration in Cmfrt, Bowel, Constipation, Mobility Impaired, Self Care Deficit and Alteration-Leisure Activ. Potential Problem List:: DVT, Bleeding, Infection, UTI, Aspiration, Falls, Skin Integrity and Depression Risk of Complications DVT: RAJ Hose, Sequential Compression Device and - (Apixaban 2.5 mg twice daily x4 weeks) Bleeding: Monitor Lab Values, Nursing to Teach Precautions for anti-coagulation therapy., Wound, if applicable, to be assessed every shift. and Stroke patients assessed for lethargy or change in status. Infection: Clinical Staff to Monitor for S/S of infection: and S/S of infection include fever, redness, warmth, etc. Urinary Tract Infection: Monitor for frequency, burning, discomfort, or incontinence. and Nursing will obtain urine sample for urinalysis and C&S when ordered. Aspiration: Clinical staff will monitor for coughing, drooling, congestion., Speech will evaluate swallowing and dsyphasia. and Nursing will monitor patient swallowing during meals. Falls: Patient will be evaluated for Fall Precautions and Patient will be placed on Fall Precautions as indicated per protocol. Skin Breakdown: Nursing will assess skin daily using assessment tool. and Nursing will place on Skin Breakdown Precautions as indicated. Pain: Clinical staff will assess patient's pain level per protocol., Medications will be given, if needed, and the pain level reassessed. and Other methods: Massage, distraction, decrease stimulus, etc. used PRN. Plan of Care Patient requires physician specializing in physical medicine and rehab oversight to provide close medical supervision of rehab issues including: Pain Management, Sleep Problems, Bowel and Bladder, Medical and co-morbidity Management, DVT prophylaxis, Rehabilitation Leadership and Coordination of treatment team Patient needs Physical Therapy: For a minimum of 1 hour and At least 5 out of 7 days Patient needs Physical Therapy to improve:: Mobility, Strengthening, Transfers, Stretching, ROM, Endurance, Stairs, Gait and Balance Patient needs Occupational Therapy: For a minimum of 1 hour and At least 5 out of 7 days Patient needs Occupational Therapy to improve ADL's incl.: Eating, Grooming, Bathing, Dressing, Toileting, Toilet transfers, Community Reintegration, Higher functioning activities, Household tasks, Adaptive Equipment, Splinting and Other activities as determined Patient requires 24/7 Rehabilitation Nursing for: Pain Issues, Identifying and preventing risk factors, Monitoring and reporting current medical conditions, Assisting with ambulation, transfer, and all ADL's, Teaching patients about disease process and medications, Family teaching, Providing safe environment, Bowel and Bladder Issues, Skin integrity and Medication Management Patient needs Fly Raiser Lock[employer]ch/ Case Management for: Discharge Planning, Arranging Home Equipment or Services and Family Interventions Patient needs Dietary and Nutrition Services for: Adequate Nutrition, Nutritional Supplements and Nutritional Education Goals Patient will remain: free from falls and or injury at time of discharge. Patient will perform bed mobility at: MOD I level of assist. Patient will complete transfers from bed to chair at: MOD I level of assist. Patient will ambulate: - (250 feet with a wheeled walker at mod I on various surfaces to allow patient to return home/community alone.) Patient will complete upper body dressing at: MOD I level of assist. Patient will complete lower body dressing at: MOD I level of assist. Patient will complete toileting at: MOD I level of assist. Patient will perform bathing at: MOD I level of assist. Patient will complete grooming at: MOD I level of assist. Patient will complete home management skills at: MOD I level of assist. Patient will achieve: 12 stairs (12 steps with 2 handrails at standby assist to allow access to her home entrance.) and - (1 curb step) Patient will have pain level of: of 3 or less Patient's skin will: remain intact Patient will receive: adequate nutrition. Discharge Planning Pt Prognosis for Sig. Practical Improv. w/in Reasonable Time: Good Estimated Length of stay (days): 21 Anticipated D/C Destination: Home with Home Health (Pt lives alone and may initially need HHC but, will progress to OP therapy.) Was Preadmission Assessment Accurate?: Yes
[2022-06-21 14:26] LABS: Hemoglobin A1c 5.7 % (3.8-5.6)
[2022-06-21] MEDS: Magnesium Hydroxide 30 ML UDC PO (16:30)
[2022-06-21 19:44] VITALS: BP 111/70; PULSE 115; RESP 18; TEMP 36.6; O2SAT 97
[2022-06-21] MEDS: Famotidine 20 MG Tablet PO (20:46)
[2022-06-21 20:49] VITALS: PULSE 108
[2022-06-22 02:12] VITALS: BP 111/70; PULSE 108; RESP 18; TEMP 36.6; O2SAT 97
[2022-06-22] MEDS: oxyCODONE 5 MG Tablet PO ×3 (05:41→20:57)
[2022-06-22] MEDS: Sertraline 50 MG Tablet PO (08:00)
[2022-06-22] MEDS: APIXABAN 2.5 MG TABLET PO ×2 (08:00→20:58)
[2022-06-22] MEDS: Naproxen 250 MG Tablet PO (08:00)
[2022-06-22] MEDS: Famotidine 20 MG Tablet PO ×2 (08:00→20:58)
[2022-06-22] MEDS: Menthol/Lanolin/Calamine/Znox 113 GM Tube 1 APPLIC TOPICAL ×2 (08:03→21:00)
[2022-06-22 08:06] VITALS: BP 111/63; PULSE 94; RESP 16; TEMP 36.8; O2SAT 96
--- NOTE | 2022-06-22 09:37 | CASEMGMT ---
Social Work IDT met with patient for Team meeting. Discussed patient's progress in PT/OT/SN. Educated to [facility] insurance with [employer] 06/22 and continued stay is not guaranteed. Pts goal is to return home alone. Barriers to DC are the 12 steps to get into the home and living alone. SW to continue to follow for DC planning. Will Reteam. Emely Castillo, [employer]PLIER TOPOGRAPHICAL SURVEYOR
--- NOTE | 2022-06-22 11:27 | PCM.PN.BLA ---
Progress Note Josy was seen on team rounds today. No family was able to participate. Afebrile VSS - HR has been increased into the low 100's, BP is WNL Maintaining appropriate oxygen saturation on RA Oral intake is not being recorded currently. Will order intake and outputs to be done daily. Discussed with nursing - no problems that need addressed Reviewed the PT/OT notes Medication list reviewed. She is c/o increased Left leg pain distal to the knee today. She has pain in the left calf when I dorsiflex the left foot. Denies pain in the left groin or anterior thigh. Denies CP and SOB. No hx of VTE. She is on apixaban 2.5 mg twice daily for DVT prophylaxis. Not having muscle cramps. Physical Exam Const Constitutional Narrative: Alert, appears to be in pain and uncomfortable. She is appropriate. HEENT HEENT Narrative: MM are actually more moist today than yesterday and she has been aware of increasing her fluid intake and she is trying. Resp Resp Narrative: Not tachypneic, no labored breathing, able to speak in complete sentences. CTA with good air exchange. Cardio Cardio Narrative: Tachycardic with occasional premature beats. Seems anxious. She is jumpy...when I touched her left foot she screamed out. I then told her I was going to touch both feet and she did not jump and had no pain in either foot. I dorsiflexed her left foot and asked if she had pain and she initially said no and then changed her mind and said yes. She had no pain with squeezing the left calf. There is no swelling of the left foot or ankle. She is c/o severe pain? Seems to be out of proportion to the physical findings. She tells me that when she is in pain or anxious her BP goes up on a routine basis. GI GI Narrative: Soft, NT, ND, normal BS's .......she had a BM after the laxative yesterday. Extremity Extremity Narrative: no swelling of the distal LLE Skin Skin Narrative: No rashes and no skin breakdown. Assessment & Plan Assessment/Plan (1) Physical debility: PLAN: Continue PT/OT. (2) Fall: (3) Fracture of femoral neck, right: (4) History of right hip hemiarthroplasty: (5) Acute postoperative anemia due to expected blood loss: (6) Anxiety: PLAN: I discussed smoking cessation with her yesterday and she told me that she has gone back to smoking in the past after quitting for up to a year to manage her stress. She agreed to trailing a medication to control anxiety and I started Sertraline. today she told the SW that she does not want to take the Sertraline. I think the anxiety is influencing her perception of pain. (7) Tachycardia: PLAN: This may be due to anxiety but the HR's are more increased now and she is actually better hydrated. Need to r/o VTE so will order a venous US of the LLE. Visit Charges Inpatient E&M: 26612 Subs Hosp L2
--- NOTE | 2022-06-22 11:59 | VDLE_ITS ---
Reason For Study: Pain RIGHT GSV is normal. CFV is compressible, spontaneous, phasic, competent and demonstrates normal augmentation. FV is compressible, spontaneous, phasic, competent and demonstrates normal augmentation. POP V is compressible, spontaneous, phasic, competent and demonstrates normal augmentation. T/P Trunk is compressible. PTV is compressible. RT PerV is compressible. Procedure This is a venous duplex using B-mode, color flow and spectral Doppler. Exam performed portable in patient room. A preliminary report was called and/or faxed to machinist set up. VL/Venous Duplex US, Unilateral Interpretation Summary Deep veins of the right lower extremity are patent and compressible segmentally . There is no evidence of right lower extremity deep vein thrombosis. The right great sapheno us vein appears patent and compressible segmentally. Ordering Physician: Milana Fuentes Referring Physician: Jesus Lane Performed By: Ban Cowan RVT
[2022-06-22 18:53] VITALS: BP 123/69; PULSE 91; RESP 18; TEMP 36.6; O2SAT 94
[2022-06-22 20:00] VITALS: O2SAT 96
[2022-06-23] MEDS: oxyCODONE 5 MG Tablet PO (03:54)
[2022-06-23 07:53] VITALS: BP 128/77; PULSE 94; RESP 18; TEMP 36.6; O2SAT 98
[2022-06-23] MEDS: APIXABAN 2.5 MG TABLET PO ×2 (08:42→20:13)
[2022-06-23] MEDS: Senna/Docusate Sodium 1 Tablet 2 TABLET PO ×2 (08:42→20:14)
[2022-06-23] MEDS: Naproxen 250 MG Tablet PO (08:42)
[2022-06-23] MEDS: Famotidine 20 MG Tablet PO ×2 (08:43→20:14)
[2022-06-23 19:30] VITALS: BP 131/69; PULSE 90; RESP 16; TEMP 36.6; O2SAT 98
[2022-06-23] MEDS: Arthritis Pain Compound 60 CLICK TUBE TOPICAL (20:09)
[2022-06-23] MEDS: Menthol/Lanolin/Calamine/Znox 113 GM Tube 1 APPLIC TOPICAL (20:10)
[2022-06-23 22:00] VITALS: PULSE 90; RESP 16; O2SAT 98
[2022-06-24 07:59] VITALS: BP 132/86; PULSE 87; RESP 16; TEMP 36; O2SAT 95
[2022-06-24] MEDS: APIXABAN 2.5 MG TABLET PO ×2 (08:43→20:35)
[2022-06-24] MEDS: Arthritis Pain Compound 60 CLICK TUBE TOPICAL ×2 (08:43→20:36)
[2022-06-24] MEDS: Naproxen 250 MG Tablet PO (08:43)
[2022-06-24] MEDS: Menthol/Lanolin/Calamine/Znox 113 GM Tube 1 APPLIC TOPICAL ×2 (08:43→20:35)
[2022-06-24] MEDS: Famotidine 20 MG Tablet PO ×2 (08:43→20:35)
[2022-06-24 10:00] VITALS: PULSE 87; RESP 16; O2SAT 95
[2022-06-24 19:50] VITALS: BP 112/65; PULSE 90; RESP 16; TEMP 36.4; O2SAT 100
[2022-06-24 20:35] VITALS: O2SAT 98
[2022-06-25 07:42] VITALS: O2SAT 99
[2022-06-25] MEDS: Naproxen 250 MG Tablet PO (07:45)
[2022-06-25] MEDS: Famotidine 20 MG Tablet PO ×2 (07:45→20:59)
[2022-06-25] MEDS: Menthol/Lanolin/Calamine/Znox 113 GM Tube 1 APPLIC TOPICAL ×2 (07:45→20:59)
[2022-06-25] MEDS: Arthritis Pain Compound 60 CLICK TUBE TOPICAL ×2 (07:45→21:00)
[2022-06-25] MEDS: APIXABAN 2.5 MG TABLET PO ×2 (07:45→20:59)
[2022-06-25] MEDS: Senna/Docusate Sodium 1 Tablet 2 TABLET PO (07:46)
[2022-06-25 08:19] VITALS: PULSE 97; O2SAT 99
[2022-06-25 08:57] VITALS: BP 128/76; PULSE 82; RESP 16; TEMP 36.4; O2SAT 96
[2022-06-25 20:03] VITALS: BP 121/69; PULSE 94; RESP 18; TEMP 36; O2SAT 98
[2022-06-25 22:00] VITALS: O2SAT 98
[2022-06-26 07:21] VITALS: BP 120/68; PULSE 80; RESP 16; TEMP 35.9; O2SAT 96
[2022-06-26] MEDS: Arthritis Pain Compound 60 CLICK TUBE TOPICAL ×2 (07:48→20:32)
[2022-06-26] MEDS: Naproxen 250 MG Tablet PO (07:49)
[2022-06-26] MEDS: APIXABAN 2.5 MG TABLET PO ×2 (07:49→20:34)
[2022-06-26] MEDS: Famotidine 20 MG Tablet PO (07:49)
[2022-06-26 08:30] VITALS: O2SAT 96
--- NOTE | 2022-06-26 11:10 | PCM.PROGNOTE ---
Subjective Subjective Afebrile VSS-blood pressure is well controlled. Maintaining appropriate oxygen saturation on RA Oral intake is good Discussed with nursing - no problems that need addressed Reviewed the PT/OT notes Medication list reviewed. Sitting in the chair at the bedside when I entered the room. Appears comfortable and in no distress. Smiling and pleasant. Not as fidgety as last week. she is sleeping well and pain is well controlled. She tells me that the arthritis cream is helping with the R knee pain. She denies SOB, CP, palpitations, N/V/abd cramping. she is still c/o heartburn even with the increase in the Famotidine to 20 mg BID. It is worst in the evening and towards bedtime. She denies having cravings to smoke and tells me that she is feeling less anxious. No dysuria and good bowel function. Objective Data Objective Data Vital Signs: Vital Signs Temp Pulse Resp BP Pulse Ox O2 Del Method 96.6 F L 80 16 120/68 96 Room Air 06/26/22 07:21 06/26/22 07:21 06/26/22 07:21 06/26/22 07:21 06/26/22 08:30 06/26/22 08:30 Oxygen Delivery Method Room Air Weight: 190 lb 4.143 oz Body Mass Index (BMI) 29.2 Intake & Output: Intake and Output for Last 24 Hours 06/24/22 06/25/22 06/26/22 23:59 23:59 23:59 Intake Total 1750 / 1750 1410 / 1410 400 / 400 Output Total 2075 / 2075 1500 / 1500 350 / 350 Balance -325 / -325 -90 / -90 50 / 50 Lab / Micro Data Result Diagrams: 06/21/22 05:13 06/21/22 05:13 Physical Exam Const alert, oriented x3 and no apparent distress General Appearance: cooperative Resp normal respiratory effort, normal air movement and clear to auscultation bilaterally Resp Narrative: No0 conversational dyspnea. Cardio regular rate, regular rhythm, S1 normal heart sound, S2 normal heart sound, no murmurs, no rub and no gallops Cardio Narrative: no ectopy today GI normal to inspection, nondistended, normoactive bowel sounds, soft to palpation and non-tender Extremity no calf tenderness General Extremity: Negative for edema Skin General Skin Exam: no breakdown Rashes: no rashes Neuro CN's II-XII intact bilaterally and no focal motor deficits Assessment & Plan Assessment/Plan (1) Physical debility: PLAN: Continue PT/OT. She is planning on staying with her parents for a while following DC from rehab. (2) Fall: (3) Fracture of femoral neck, right: PLAN: Will follow up with Dr. Bob post DC. She asked if the SCD's can be discontinued....the noise keeps her awake sometimes. She is ambulatory now and she is on Apixaban and Sohail hose. Will DC the SCD's. (4) History of right hip hemiarthroplasty: (5) Acute postoperative anemia due to expected blood loss: PLAN: check an HH in the AM (6) Anxiety: PLAN: Continue the Sertraline at DC. (7) GERD (gastroesophageal reflux disease): PLAN: DC famotidine and start Protonix 40 mg daily. Charges/Coding Visit Charges Inpatient E&M: 94657 Subs Hosp L2
[2022-06-26] MEDS: Pantoprazole Sodium 40 MG Tablet PO (13:10)
--- NOTE | 2022-06-26 13:30 | CASEMGMT ---
Social Work Spoke with pt to update on insurance. Insurance reviewer has not given NRD or LCD and concerned pt has not received auth for RU stay. Cautioned pt that insurance may issue DC date at any time. Pt states she feels ready to DC 06/30 and has decided to stay with her mom and dad at their house. Pt will be getting handrails installed at her home in the meantime. Pt's father lives on [address] in [place]. Pt requesting outpatient therapy at [facility]. Referral made for PT. Pt has no DME needs. Dad to transport. SW to keep pt and IDT updated. SW completed advanced directives. Original and copy provided to pt. Copies placed on chart. Emely Castillo, CORPORATE COMPLIANCE DIRECTOR EXTRUDER OPERATOR HORIZONTAL
[2022-06-26 19:46] VITALS: BP 124/80; PULSE 100; RESP 16; TEMP 36.6; O2SAT 96
[2022-06-26] MEDS: Menthol/Lanolin/Calamine/Znox 113 GM Tube 1 APPLIC TOPICAL (20:48)
--- NOTE | 2022-06-26 21:02 | NURSING ---
RN assist with ambulation around unit twice. X1 assist with wheeled walker and gait belt in place. Pt tolerated well.
[2022-06-26 22:00] VITALS: PULSE 92; RESP 17; O2SAT 97
[2022-06-27 05:41] LABS: Hematocrit 28.3 % (37-47); Hemoglobin 8.7 g/dL (12.0-15.0)
[2022-06-27] MEDS: Menthol/Lanolin/Calamine/Znox 113 GM Tube 1 APPLIC TOPICAL ×2 (05:49→20:23)
[2022-06-27 07:30] VITALS: BP 119/61; PULSE 61; RESP 16; TEMP 36; O2SAT 96
[2022-06-27] MEDS: Naproxen 250 MG Tablet PO (09:09)
[2022-06-27] MEDS: APIXABAN 2.5 MG TABLET PO ×2 (09:10→20:22)
[2022-06-27] MEDS: Pantoprazole Sodium 40 MG Tablet PO (09:10)
[2022-06-27] MEDS: Arthritis Pain Compound 60 CLICK TUBE TOPICAL ×2 (09:10→20:22)
--- NOTE | 2022-06-27 11:36 | PCM.PN.BLA ---
Progress Note Afebrile VSS Maintaining appropriate oxygen saturation on RA Oral intake is good Discussed with nursing - no problems that need addressed Reviewed the PT/OT notes Medication list reviewed. All lab from this morning was personally reviewed. Hemoglobin is 8.7, down from 9.3 on 06/21/2022. She had normochromic normocytic indices on 06/21/2022. She has not had a heme stool and she was still c/o heart burn yesterday so Famotidine was changed to Protonix. She is on Apixaban for DVT prophylaxis. No complaints today. She is sleeping well and pain is well controlled on Tylenol....has not had an Oxycodone since the . She is outgoing and talkative now and smiles a lot. Not longer jumpy. Speech is more relaxed. No adverse reactions with Sertraline. No cravings for cigarettes. Physical Exam Const Constitutional Narrative: Alert, pleasant, more social than at admission, no obvious distress. Well kempt. HEENT HEENT Narrative: Mucous membranes are moist. Resp Resp Narrative: Good air exchange, clear to auscultation. No conversational dyspnea. Not tachypneic with exercise. Cardio Cardio Narrative: Regular rate and rhythm, no gallop, no murmur. GI GI Narrative: Soft, nontender, nondistended, bowel sounds present in all quadrants, having regular bowel movements now. Extremity Extremity Narrative: Denies calf tenderness. No peripheral edema. Skin Skin Narrative: No rashes, no skin breakdown. Incision is healing and there is no purulent DC and no dehiscence and no erythema or increased warmth to touch. Assessment & Plan Assessment/Plan (1) Physical debility: (2) Fall: (3) Recent fracture of hip: (4) History of right hip hemiarthroplasty: (5) Anxiety: (6) GERD (gastroesophageal reflux disease): PLAN: Plan 1. Continue therapy 2. Completed her FMLA and disability paperwork today 3. [facility] Visit Charges Inpatient E&M: 44563 Subs Hosp L2
[2022-06-27 19:24] VITALS: BP 120/72; PULSE 87; RESP 12; TEMP 36.6; O2SAT 97
[2022-06-27 22:00] VITALS: PULSE 88; RESP 16; O2SAT 97
[2022-06-28] MEDS: Menthol/Lanolin/Calamine/Znox 113 GM Tube 1 APPLIC TOPICAL ×2 (05:31→21:22)
[2022-06-28 07:48] VITALS: BP 122/75; PULSE 86; RESP 16; TEMP 36.4; O2SAT 98
[2022-06-28] MEDS: Pantoprazole Sodium 40 MG Tablet PO (09:02)
[2022-06-28] MEDS: Naproxen 250 MG Tablet PO (09:02)
[2022-06-28] MEDS: Arthritis Pain Compound 60 CLICK TUBE TOPICAL ×2 (09:02→21:20)
[2022-06-28] MEDS: APIXABAN 2.5 MG TABLET PO ×2 (09:02→21:20)
[2022-06-28 09:49] VITALS: PULSE 98; O2SAT 99
--- NOTE | 2022-06-28 12:53 | NURSING ---
Per Dr. Fuentes, I&O can be discontinued for the patient.
--- NOTE | 2022-06-28 13:30 | CASEMGMT ---
Social Work P2P completed through insurance and approved. NRD 06/28 with planned DC 06/30. Faxed referral to [facility]. No DME needs. Plan: DC home 06/30, [facility] ELENA Yo[facility]
[2022-06-28 19:54] VITALS: BP 115/73; PULSE 86; RESP 16; TEMP 36; O2SAT 99
--- NOTE | 2022-06-28 20:12 | NURSING ---
Pt c/o pain in rt knee this evening, edema noted,but states she does not want pain meds at this time, polar care filled and applied to rt knee to help. Will continue to monitor.
[2022-06-28 22:00] VITALS: O2SAT 98
[2022-06-29] MEDS: Menthol/Lanolin/Calamine/Znox 113 GM Tube 1 APPLIC TOPICAL ×2 (06:33→21:29)
[2022-06-29 08:03] VITALS: BP 113/76; PULSE 80; RESP 16; TEMP 36.4; O2SAT 98
[2022-06-29] MEDS: APIXABAN 2.5 MG TABLET PO ×2 (08:12→21:29)
[2022-06-29] MEDS: Naproxen 250 MG Tablet PO (08:12)
[2022-06-29] MEDS: Arthritis Pain Compound 60 CLICK TUBE TOPICAL ×2 (08:12→21:29)
[2022-06-29] MEDS: Pantoprazole Sodium 40 MG Tablet PO (08:12)
[2022-06-29 09:00] VITALS: O2SAT 99
--- NOTE | 2022-06-29 12:01 | PCM.PROGNOTE ---
Subjective Subjective Josy was seen on TEAM rounds. She feels ready to DC. Will be discharging home with her father. Afebrile VSS Maintaining appropriate oxygen saturation on RA Oral intake is good Discussed with nursing - no problems that need addressed Reviewed the PT/OT notes Medication list reviewed. Stool for occult blood was negative. She is having some pain in her hands today, briseida the 4th and 5th fingers on BL hands. She is attributing this to the change in the weather......this is a regular occurrence. She has not seen a coding quality coordinator. The MCP's and the distal ulnar articulation are swollen on both hands. She tells that since the Protonix was started she has not had any heartburn. L- CTA MMM HRRR, no ectopy abd - soft, NT, ND, normal BS's no ankle edema Impressions 1. R hip Fracture 2. Right hip hemiarthroplasty on 06/19/[address] Bob 3. Glucose intolerance with a hemoglobin A1c of 5.7. Advised carbohydrate control, exercise daily and some weight reduction. 4. DC tomorrow home with her father and [facility] PT at [facility] Objective Data Objective Data Vital Signs: Vital Signs Temp Pulse Resp BP Pulse Ox O2 Del Method 97.5 F L 80 16 113/76 99 Room Air 06/29/22 08:03 06/29/22 08:03 06/29/22 08:03 06/29/22 08:03 06/29/22 09:00 06/29/22 08:03 Oxygen Delivery Method Room Air Weight: 190 lb 4.143 oz Body Mass Index (BMI) 29.2 Intake & Output: Intake and Output for Last 24 Hours 06/27/22 06/28/22 06/29/22 23:59 23:59 23:59 Intake Total 2190 / 2190 960 / 960 Output Total 1725 / 1725 900 / 900 Balance 465 / 465 60 / 60 Lab / Micro Data Result Diagrams: 06/27/22 05:32 06/21/22 05:13 Micro: Microbiology 06/27/22 13:15 Stool Stool Occult Blood (DAHLIA) - Final Charges/Coding Visit Charges Inpatient E&M: 87044 Subs Hosp L1
--- NOTE | 2022-06-29 13:19 | CASEMGMT ---
Social Work IDT met with patient for Team meeting. Discussed patient's progress in PT/OT/SN. Insurance approved stay. Confirmed pt will DC 06/30 to parents house with [facility]. No DME needs. No other needs noted. Emely Castillo, COMPANY LABORER [employer]AIAKO [employer]URA TUARUA
--- NOTE | 2022-06-29 15:20 | DCINST_ITS ---
Discharge Instructions Diet Discharge Diet: No restrictions Activity Discharge Activity: May Not Drive, May Shower and Use Walker (Use the walker until physical therapy tells you it is OK to downgrade to a cane. ) May resume sexual activity in: No Restrictions Weight Bearing Status: Full weight bearing Keep extremity elevated above heart level: Right Leg Dressing / Incision Call your doctor if your incision/area has: - (Can leave open to air OR cover with a light dry dressing if drainage present. ) Call your doctor if you observe: Fever of 101 or Higher, Numbness or Tingling, Shortness of breath, Dizziness, Fainting spells, Chest pain, Increased palpitations (irregular heartbeat), Calf discomfort and Uncontrolled pain Suture Line Care: Avoid Pulling/Pushing and Avoid Pinching/Bending Cleanse incision/area with: Soap & Water Additional Dressing/Incision Instructions:: If there is increasing redness around the incision or foul smelling DC call Dr. Silva's office. Follow Up Care Please Follow Up With: Gerardo Bob, When: In addition to Dr. Bob she will follow up with Dr. Jesus Lane, her PCP. Test Results: Test results from this visit will be discussed in further detail at your follow- up appointment, if applicable. Pending Tests Upon Discharge: none Discharge Plan Admission Admit Date/Time: 06/20/22 17:20 Primary Reason for Your Visit: Debility to a fall with R hip fracture. Attending Provider: Milana Fuentes Primary Care Provider: Jesus Lane Instructions Patient Instructions: Your Body's Response to Anxiety, What is Rheumatoid Arthritis?, Health Effects of Smoking, Hip Fx Surg Dc, Kicking the Smoking Habit, ED GERD (Adult) Additional Instructions / Restrictions: 1. When you first came to the rehab unit you seemed quite anxious. You nearly jumped off the bed when I lightly touched your calf. You seemed tense. You admitted that you went back to smoking after a year of not smoking because of stress at work. Anxiety is a terrible feeling and you want to feel better so you fight something that calms your nerves and makes you feel better. The something better can become an addiction. There are many things you can be addicted to and these include cigarettes, gambling, opiates, Valium, Alcohol, sex etc. The physical addiction to cigarettes lasts about 4-5 days and then is gone. The psychological addiction is much harder to get rid of. If you are still feeling stressed the addiction may become a problem again. If you can not eliminate the stress then taking a medication to help you deal with stress is an option. You have been started on an anti-anxiety drug called Sertraline and this drug is a serotonin reuptake inhibitor. Serotonin is a neurotransmitter in your body that gives you a sense of well being. Sertraline will increase the level of serotonin in the body and treats anxiety well in many people. It is not addictive and you only have to take it once a day. You have not had any adverse reactions to this drug. I am giving you a prescription for Sertraline at discharge. If you do go back to work after you recover this will help with the anxiety work brings on. 2. You have done very well in therapy. You will need ongoing therapy after Discharge to get you back to your baseline. No driving until Dr. Bob releases you to drive. Use the walker until the physical therapist tells you to transition to a cane. 3. If you start having cravings to smoke again there is a smoking cessation program here at the hospital and they can help. Call the hospital at [phone] and ask to be connected to the smoking cessation coordinator. 4. Famotidine (also called Pepcid) did not help with the heartburn/GERD. The heartburn resolved when we switched you to a drug called Protonix ( also called Pantoprazole). I have given you some literature to read about GERD and the non- pharmacologic treatment as well as the medications used to treat GERD. 5. You will continue to take the Apixaban (Eliquis) until 07/20/22. This medication helps to prevent blood clots in you legs and lungs after Hip surgery. If you have any bleeding from the anus, bleeding from the nose or Gums or you are coughing up blood call Dr. Lane for advice. We checked you stool and there is no blood. You have been taking Naprosyn (Alleve) in the hospital once a day without a problem. You will continue to take Naprosyn once a day with food until you are done with the Apixaban and then you will increase to Twice a day, always with food. Rheumatoid arthritis can over time cause joint destruction and deformity in addition to pain. Naprosyn is an anti-inflammatory that helps with pain. you must take it everyday to get the inflammatory effect and not just pain relief. I recommend you follow up with a electron gun inspector to be treated for the arthritis and prevent joint destruction/deformity. The [facility] is at [address] [place] [address] in [place], [place] and the phone # is [phone]. they are all board certified rheumatologists in the practise. 6. It was a pleasure to meet you Josy. If you or your family/friends ever need our services we will be here for you. If you have any questions after you leave rehab please don not hesitate to call me! Office: [phone] CELL: [phone] Discharge Orders/Prescriptions Prescriptions: New naproxen 250 mg Tablet 250 mg PO BIDCM Qty: 60 0RF Rx Instructions: Take one day with food and then on 07/21 increase to twice a day. Arthritis Pain Compound 0 click topical BID Qty: 0 0RF pantoprazole 40 mg Tablet,Delayed Release (Dr/Ec) 40 mg PO DAILY Qty: 30 0RF sertraline 50 mg tablet 50 mg PO DAILY Qty: 30 0RF Rx Instructions: Take in the AM Continued apixaban 2.5 mg tablet 2.5 mg PO BID Qty: 36 0RF Rx Instructions: for DVT prophylaxis post hip surgery oxycodone 5 mg tablet 5 mg PO Q4H PRN PRN (Reason: Pain, Mild) 7 Days Qty: 14 0RF Discontinued famotidine [Pepcid] 20 mg Tablet 20 mg PO DINNER naproxen sodium [Aleve] 220 mg Capsule 220 mg PO DAILY Referrals / Follow Up: Gerardo Bob DO [Med Staff - Active Staff] - 07/05/22 1:00 pm Disposition Disposition (needs filled in before D/C Order can be placed): Home, Self Care
[2022-06-29 19:13] VITALS: BP 113/61; PULSE 82; RESP 18; TEMP 35.9; O2SAT 98
[2022-06-30] MEDS: Menthol/Lanolin/Calamine/Znox 113 GM Tube 1 APPLIC TOPICAL (05:17)
[2022-06-30 07:37] VITALS: BP 126/70; PULSE 81; RESP 12; TEMP 36.3; O2SAT 96
[2022-06-30] MEDS: APIXABAN 2.5 MG TABLET PO (08:16)
[2022-06-30] MEDS: Naproxen 250 MG Tablet PO (08:16)
[2022-06-30] MEDS: Pantoprazole Sodium 40 MG Tablet PO (08:16)
[2022-06-30] MEDS: Arthritis Pain Compound 60 CLICK TUBE TOPICAL (08:16)
--- NOTE | 2022-06-30 11:00 | PCM.DC.SUM ---
Providers Date of Admission: 06/20/22 Date of Discharge: 06/30/22 Primary Care Physician: Dr. Jesus Lane DO Reason For Visit: R HIP FX Diagnosis Discharge Diagnosis (1) Physical debility: Status: Acute Code(s): R53.81 - Other malaise (2) Fall: Status: Acute Code(s): W19.XXXA - Unspecified fall, initial encounter Plan: Lost her balance 2 times in the same day and fell twice onto the R hip causing a fracture. (3) Recent fracture of hip: Status: Acute Code(s): S72.009A - Fracture of unspecified part of neck of unspecified femur, initial encounter for closed fracture (4) History of right hip hemiarthroplasty: Status: Acute Code(s): Z96.641 - Presence of right artificial hip joint Plan: By Dr. Bob on 06/19/22. (5) Anxiety: Status: Chronic Code(s): F41.9 - Anxiety disorder, unspecified Plan: Related to her job. Was relieving stress with cigarette smoking. (6) GERD (gastroesophageal reflux disease): Status: Acute Code(s): K21.9 - Gastro-esophageal reflux disease without esophagitis Plan: Failed Famotidine but, much improved with Protonix. Stool was heme negative. (7) Tachycardia: Status: Resolved Code(s): R00.0 - Tachycardia, unspecified Plan: Resolved with better control of anxiety. (8) Elevated fasting blood sugar: Status: Acute Code(s): R73.01 - Impaired fasting glucose Plan: HGBA1C is 5.7. (9) Acute postoperative anemia due to expected blood loss: Status: Acute Code(s): D62 - Acute posthemorrhagic anemia Plan: Asymptomatic. (10) Hyponatremia: Status: Resolved Code(s): E87.1 - Hypo-osmolality and hyponatremia (11) Tobacco dependence due to cigarettes: Status: Chronic Code(s): F17.210 - Nicotine dependence, cigarettes, uncomplicated Plan: No cravings when her anxiety is controlled. tolerating Sertraline 50 mg without adverse effects. If/when she goes back to work may need to increase to 100 mg daily if recurrent anxiety with 50 mg. (12) Rheumatoid arthritis: Status: Acute Code(s): M06.9 - Rheumatoid arthritis, unspecified Plan: She will continue 250 mg Naprosyn daily until she is off the Eliquis and then increase the dose to 250 mg BID. Advised her to follow up with a security vehicle patrol officer for tx to prevent joint deformities going forward. Plan 1. DC home to her father's house. 2. OP PT at [facility] 3. FMLA and insurance disability forms completed prior to DC 4. Follow up with Dr. Robertson in the next 1-2 weeks 5. Follow up with Dr. Bob - scheduled . 6. Adhere to hip precautions and no driving until released by Dr. Bob 7. Use the walker when out in the community until PT tells you it is OK to use a cane. Medications at Discharge Home Medications Arthritis Pain Compound 0 click topical BID ##0 06/29/22 apixaban 2.5 mg tablet 2.5 mg PO BID #36 tabs 06/29/22 naproxen 250 mg tablet 250 mg PO BIDCM #60 tabs 06/29/22 oxycodone 5 mg tablet 5 mg PO Q4H PRN PRN Pain, Mild 7 days #14 tabs 06/29/22 pantoprazole 40 mg tablet,delayed release 40 mg PO DAILY #30 tabs 06/29/22 sertraline 50 mg tablet 50 mg PO DAILY #30 tabs 06/29/22 Hospital Course Operations - (Right hip knee arthroplasty on 06/19/[address] Bob.) Procedures None Summary of Care Provided Minutes Spent on Discharge: 35 Hospital Course: JACK JIMENEZ, is a 66 YO? F with a PMH of GERD, tobacco dependence and RA who presented to [facility] ED on 06/19/22 complaining of right hip pain after a mechanical fall.? She was unable to ambulate.? Imaging revealed a displaced right femoral neck fracture.? She was transferred to [facility] for orthopedic evaluation by Dr. Bob and was admitted to the hospitalist service.? Dr. Bob saw the pt and recommended a R hip hemiarthroplasty and Jack was in agreement.? She was taken to surgery on 06/19/22.?Post operatively she was placed on Eliquis 2.5 mg BID for 4 weeks for DVT prophylaxis. On 06/20/22 she was transferred to acute rehab for 3 hours of therapy daily to restore function at or near her level prior to the hip fracture.? Upon arrival to rehab Jack was quite anxious/jumpy. We discussed anxiety. She related to me that she had a lot of stress at work. We discussed smoking cessation and she has been able to quit on 2 occasions in the past, on 1 occasion she quit for a whole year. She started smoking again to control the stress at work. She has never been treated for anxiety/depression. She was started on Sertraline 50 mg to help with anxiety. she gradually calmed down and started sleeping better. I could touch her without her startling and jumping. She started interacting with staff better and was very motivated to get better and go home. She had no adverse reactions to the Sertraline. Jack lives alone and has RA and a hx of Left pelvic fractures requiring extensive hardware to repair. She admitted to having Hip, knee and hand pain that waxes and wanes. She was taking OTC Naprosyn 220 mg a day for pain. She had not seen a security vehicle patrol officer for many years. We continued Naprosyn 250 mg daily while she was in rehab. She had a lot of R knee pain and she was started on Arthritis cream containing Lidocaine, Voltaren and Baclofen. This worked well for her and she was given a Rx for the cream at [facility]. After 06/23/22 her pain was controlled with the cream only and she did not take any more Oxycodone. On 06/29/22 she was complaining of pain in both hands involving the MCP's and the 4th and 5th fingers. The joints were swollen and painful to the touch. There was marine enlargement of the joints. I suggested she follow up with a security vehicle patrol officer to discuss treatment to prevent further joint damage. Jack did very well in therapy. Prior to [facility] she had ambulated up to 367 feet. She is independent with household distances but, supervision/assist was recommend for ambulation in the community. She was able to ascend/descend 13 steps with bilateral handrails independently. She is independent with eating, grooming and upper body dressing. She requires minimal assistance with LB dressing and moderate assistance with bathing. She is min assist for tub and shower transfer. Because she still needs some assistance with ADL's she is going to her father's house for a time after rehab and he will be able to assist. Rx's were faxed to the OP pharmacy and she had them with her at the time of DC from rehab. She has an appt with Dr. Bob on 07/05/22 at 1 PM. she will also follow up with her PCP, Dr. Jesus Lane within the next 1-2 weeks. After she is off Naprosyn she will increase the Naprosyn to 250 mg BID with food. Physical Exam Const alert, oriented x3 and no apparent distress General Appearance: cooperative HEENT normocephalic and moist oral mucous membranes Resp normal respiratory effort, normal air movement and clear to auscultation bilaterally Effort and Inspection: Negative for tachypneic, respiratory distress or labored Cardio regular rate, regular rhythm, S1 normal heart sound, S2 normal heart sound, no murmurs, no rub and no gallops Cardio Narrative: No ectopy. GI normal to inspection, nondistended, normoactive bowel sounds, soft to palpation and non-tender GI Narrative: No guarding with palpation Extremity no calf tenderness General Extremity: Negative for edema Skin General Skin Exam: no breakdown Rashes: no rashes Wound Narrative: The incision in the lateral right hip has no dehiscence. Chiara are in place. There is no discharge at the time of my exam but she has an occasional small amount of serous discharge. There is no erythema and no increased warmth to touch. Ecchymosis has mostly resolved. Neuro CN's II-XII intact bilaterally, no focal motor deficits and no sensory deficits noted Psych affect normal Appearance: appropriate Activity / Motor Behavior: Negative for restless Weight / BMI Weight Weight: 190 lb 4.143 oz Body Mass Index (BMI) 29.2 ABG / Lab / Microbiology Data Result Diagrams: 06/27/22 05:32 06/21/22 05:13 Microbiology: Microbiology 06/27/22 13:15 Stool Stool Occult Blood (DAHLIA) - Final D/C Instructions Discharge Diet: No restrictions May resume sexual activity in: No Restrictions Weight Bearing Status: Full weight bearing Keep extremity elevated above heart level: Right Leg Call your doctor if your incision/area has: - (Can leave open to air OR cover with a light dry dressing if drainage present. ) Call your doctor if you observe: Fever of 101 or Higher, Numbness or Tingling, Shortness of breath, Dizziness, Fainting spells, Chest pain, Increased palpitations (irregular heartbeat), Calf discomfort and Uncontrolled pain Suture Line Care: Avoid Pulling/Pushing and Avoid Pinching/Bending Cleanse incision/area with: Soap & Water Additional Dressing/Incision Instructions: If there is increasing redness around the incision or foul smelling DC call Dr. Silva's office. Pending Tests Upon Discharge: none Please Follow Up With: Gerardo Bob, DO When: In addition to Dr. Bob she will follow up with Dr. Jesus Lane, her PCP. Meaningful Use Info Meaningful Use Diagnoses (Choose all that apply): None applicable Discharge Plan Admission Admit Date/Time: 06/20/22 17:20 Primary Reason for Your Visit: Debility to a fall with R hip fracture. Attending Provider: Milana Fuentes Primary Care Provider: Jesus Lane Instructions Patient Instructions: Your Body's Response to Anxiety, What is Rheumatoid Arthritis?, Health Effects of Smoking, Hip Fx Surg Dc, Kicking the Smoking Habit, ED GERD (Adult) Additional Instructions / Restrictions: 1. When you first came to the rehab unit you seemed quite anxious. You nearly jumped off the bed when I lightly touched your calf. You seemed tense. You admitted that you went back to smoking after a year of not smoking because of stress at work. Anxiety is a terrible feeling and you want to feel better so you fight something that calms your nerves and makes you feel better. The something better can become an addiction. There are many things you can be addicted to and these include cigarettes, gambling, opiates, Valium, Alcohol, sex etc. The physical addiction to cigarettes lasts about 4-5 days and then is gone. The psychological addiction is much harder to get rid of. If you are still feeling stressed the addiction may become a problem again. If you can not eliminate the stress then taking a medication to help you deal with stress is an option. You have been started on an anti-anxiety drug called Sertraline and this drug is a serotonin reuptake inhibitor. Serotonin is a neurotransmitter in your body that gives you a sense of well being. Sertraline will increase the level of serotonin in the body and treats anxiety well in many people. It is not addictive and you only have to take it once a day. You have not had any adverse reactions to this drug. I am giving you a prescription for Sertraline at discharge. If you do go back to work after you recover this will help with the anxiety work brings on. 2. You have done very well in therapy. You will need ongoing therapy after Discharge to get you back to your baseline. No driving until Dr. Bob releases you to drive. Use the walker until the physical therapist tells you to transition to a cane. 3. If you start having cravings to smoke again there is a smoking cessation program here at the hospital and they can help. Call the hospital at [phone] and ask to be connected to the smoking cessation coordinator. 4. Famotidine (also called Pepcid) did not help with the heartburn/GERD. The heartburn resolved when we switched you to a drug called Protonix ( also called Pantoprazole). I have given you some literature to read about GERD and the non-pharmacologic treatment as well as the medications used to treat GERD. 5. You will continue to take the Apixaban (Eliquis) until 07/20/22. This medication helps to prevent blood clots in you legs and lungs after Hip surgery. If you have any bleeding from the anus, bleeding from the nose or Gums or you are coughing up blood call Dr. Lane for advice. We checked you stool and there is no blood. You have been taking Naprosyn (Alleve) in the hospital once a day without a problem. You will continue to take Naprosyn once a day with food until you are done with the Apixaban and then you will increase to Twice a day, always with food. Rheumatoid arthritis can over time cause joint destruction and deformity in addition to pain. Naprosyn is an anti-inflammatory that helps with pain. you must take it everyday to get the inflammatory effect and not just pain relief. I recommend you follow up with a security vehicle patrol officer to be treated for the arthritis and prevent joint destruction/deformity. The [facility] is at [address] [place] [address] in [place], [place] and the phone # is [phone]. they are all board certified rheumatologists in the practise. 6. It was a pleasure to meet you Jack. If you or your family/friends ever need our services we will be here for you. If you have any questions after you leave rehab please don not hesitate to call me! Office: [phone] CELL: [phone] Discharge Orders/Prescriptions Prescriptions: New naproxen 250 mg Tablet 250 mg PO BIDCM Qty: 60 0RF Rx Instructions: Take one day with food and then on 07/21 increase to twice a day. Arthritis Pain Compound 0 click topical BID Qty: 0 0RF pantoprazole 40 mg Tablet,Delayed Release (Dr/Ec) 40 mg PO DAILY Qty: 30 0RF sertraline 50 mg tablet 50 mg PO DAILY Qty: 30 0RF Rx Instructions: Take in the AM Continued apixaban 2.5 mg tablet 2.5 mg PO BID Qty: 36 0RF Rx Instructions: for DVT prophylaxis post hip surgery oxycodone 5 mg tablet 5 mg PO Q4H PRN PRN (Reason: Pain, Mild) 7 Days Qty: 14 0RF Discontinued famotidine [Pepcid] 20 mg Tablet 20 mg PO DINNER naproxen sodium [Aleve] 220 mg Capsule 220 mg PO DAILY Referrals / Follow Up: Gerardo Bob DO [Med Staff - Active Staff] - 07/05/22 1:00 pm Disposition Disposition (needs filled in before D/C Order can be placed): Home, Self Care Charges/Coding Visit Charges Inpatient E&M: 71231 Disch Hosp
[2022-06-30 13:10] VITALS: BP 126/70; PULSE 81; RESP 12; TEMP 36.3; O2SAT 96
--- NOTE | 2022-06-30 13:11 | NURSING ---
Discharged home with family. discharge instruction, medications and appointments reviewed with pt. denies questions or concerns
== END 2022-06-30 13:13 | disposition home or self-care (01) | DRG 522 ==
PROVIDERS: Admitting Provider Internal Medicine; PCP Family Medicine; Visit Provider Internal Medicine
DX: S72.001A Fracture of unspecified part of neck of right femur, initial encounter for closed fracture (principal); D62 Acute posthemorrhagic anemia; M06.9 Rheumatoid arthritis, unspecified; W19.XXXA Unspecified fall, initial encounter; K21.9 Gastro-esophageal reflux disease without esophagitis; F17.210 Nicotine dependence, cigarettes, uncomplicated; F41.9 Anxiety disorder, unspecified; Z79.01 Long term (current) use of anticoagulants; Z79.899 Other long term (current) drug therapy; Y92.007 Garden or yard of unspecified non-institutional (private) residence as the place of occurrence of the external cause; Y93.H9 Activity, other involving exterior property and land maintenance, building and construction; R03.0 Elevated blood-pressure reading, without diagnosis of hypertension; R53.81 Other malaise
CPT/HCPCS: 36415; 73502; 80048; 80053; 82274; 83036; 83735; 84100; 85014; 85018; 85025; 85027; 86850; 86900; 86901; 88305; 88311; 93005; 93971; 97110; 97116; 97162; 97166; 97530; 97535; 97537; 97802; 99251; 99406; C1776; J7030; J7120; A4216; G0463; J2405

== ENCOUNTER 2022-08-01 11:00 | Outpatient (RCR) | payer OTHER, SELFPAY ==
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
--- NOTE | 2022-10-06 08:48 | HP.PTDCNRP_ITS ---
JACK JIMENEZ was seen in my office for initial evaluation on 07/03/22. The following Plan of Care was established for this patient: Initial Frequency: 2-3x /Week Initial Duration: 4-6 Weeks Patient/Client Instruction: Educate patient on: Condition, Plan of Care, Risk Factors For the Purpose of:: To improve self management Therapeutic Exercise to Include: Strength training, Body mechanics, Postural training, Flexibilty training, Gait and locomotor training, Neuromotor development For the Purpose of:: To decrease pain, To increase ROM, To improve muscle performance and motor function, To increase tolerance to activity/condition/ position, To improve ability of physical actions for home/community/work/leisure, To improve gait and locomotor functions Cryotherapy (ice pack, ice massage): Yes For the Purpose of:: To decrease pain, To decrease swelling/inflammation This patient was last seen in our office 08/01/22. Pertinent comments regarding their Physical therapy will appear below: This patient has not returned to Physical Therapy and is appropriate to return to MD for further follow-up as needed. At this point I will be discontinuing this patient from physical therapy. I would be happy to see this patient again in the future if found appropriate by the physician. Thank you! Sherri Sullivan, PT, Cert MDT Balance/Gait/Functional tests - Balance/Special Test Scores Lower Extremity Functional Score: 28 TUG Test Time Seconds: 14.79 Tug Test: 20-30sec.=variable mobility 30 Second Chair Rise Test Seconds: 9 WOMAC Total Score: 15 WOMAC Percentage: 84.3800
== END 2022-08-01 19:00 | disposition home or self-care (01) ==
LOC: PT 11:00
PROVIDERS: Referring Provider Internal Medicine; Visit Provider Internal Medicine
DX: Z47.1 Aftercare following joint replacement surgery (principal); Z96.641 Presence of right artificial hip joint
CPT/HCPCS: 97110; 97162; 97164; 97530

== ENCOUNTER → 2023-09-10 | Outpatient (CLI) | payer MEDICARE, OTHER, SELFPAY ==
--- NOTE | 2023-09-10 12:35 | CT_ITS ---
CT RIGHT LOWER EXTREMITY WITH 3-D IMAGING CLINICAL INDICATION: Templating for right TKA. TECHNIQUE: Axial CT images of the right lower extremity (including right hip, right knee, and right ankle was performed without IV contrast material. Coronal and sagittal reformats were provided. RADIATION DOSAGE (If Supplied By Facility): CTDIvol = ( 20.10 ) mGy, DLP = ( 1189.61 ) mGycm COMPARISON: Right knee radiographs dated 09/15/2022. FINDINGS: Bones: There is a right hip arthroplasty in place, with no periprosthetic fracture. There is a fusion hardware plate with screw fixation across the pubic symphysis. There is tricompartment degenerative arthrosis of the right knee with joint space narrowing, marginal osteophyte formation, and small foci of subchondral cyst formation. Normal visualized right ankle. Osseous structures are intact without evidence of fracture or dislocation. No lytic or blastic osseous masses. Soft Tissues: There is a small right knee joint effusion. The deep soft tissue structures are unremarkable. The superficial soft tissues are unremarkable without evidence of edema, hematoma, or foreign body. CT/Extremity Lower without Contra IMPRESSION: Tricompartment degenerative arthrosis of the right knee. Small right knee joint effusion. Electronically Signed: Nic Galloway MD at 15:05 EST ,
== END | disposition home or self-care (01) ==
PROVIDERS: Referring Provider Orthopaedic Surgery; Visit Provider Orthopaedic Surgery
DX: M17.11 Unilateral primary osteoarthritis, right knee (principal)
CPT/HCPCS: 73700

== ENCOUNTER 2023-09-18 08:27 | Day surgery (SDC) | payer MEDICARE, OTHER, SELFPAY ==
--- NOTE | 2023-09-04 10:24 | EKG12_ITS ---
Test Reason : PREOP Blood Pressure : / mmHG Vent. Rate : 089 BPM Atrial Rate : 089 BPM P-R Int : 134 ms QRS Dur : 076 ms QT Int : 352 ms P-R-T Axes : 047 -22 063 degrees QTc Int : 428 ms Normal sinus rhythm Low voltage QRS Borderline ECG Confirmed by JAYDON FERNANDEZ, KALI ([id number]), scientific publications editor MACHO MEJÍA ([id number]) on 09/05/2023 11:04:53 AM Referred By: Gerardo Bob Confirmed By:KALI INTERIANO MD
[2023-09-04 11:11] LABS: Absolute Lymphocyte Count 1.97 X10^3/uL (0.83-4.51); Absolute Neutrophil Count 6.6 X10^3/uL (2.0-7.7); Basophil# 0.06 X10^3/uL; Basophil% 0.6 % (0-1); Eosinophil# 0.19 X10^3/uL; Hematocrit 41.4 % (37-47); Lymphocyte # 1.97 X10^3/ul (0.83-4.51); Lymphocyte % 20.8 % (19-41); Mean Corp Hgb Conc 31.4 g/dL (32-36); Mean Corpuscular Hgb 28.3 pg (27.0-32.0); Mean Platelet Vol. 10.1 fl (6.2-12.0); Monocyte# 0.61 X10^3/uL; Monocyte% 6.4 % (0-10); NRBC Flagged by Analyzer 0 % (0-5); Neutrophil # 6.63 X10^3/uL (2.7-7.7); Platelet Count 273 K/mm3 (150-450); RBC Distribution Width CV 14.1 % (11.6-14.6); RBC Distribution Width SD 46.6 fl (35.1-43.9); White Blood Count 9.5 K/mm3 (4.4-11.0)
[2023-09-04 11:22] LABS: International Normalized Ratio 0.9; Prothrombin Time (Protime)PT. 12.6 SECONDS (11.7-14.9)
[2023-09-04 11:23] LABS: Partial Thromboplast Time 25.3 Seconds (24.1-36.2)
[2023-09-04 11:46] LABS: Anion Gap 8 (5-15); BUN 15 mg/dL (7-18); BUN/Creat Ratio 29.3 RATIO (10-20); Calcium,Total 8.8 mg/dL (8.5-10.1); Chloride 107 mmol/L (98-107); Creatinine, Serum 0.51 mg/dL (0.55-1.02); EST Glomerular Filtration Rate 128 mL/min (>60); Est Glom Filt Rate - Afr Amer 154 mL/min (>60); Glucose 102 mg/dL (74-106); Magnesium 1.9 mg/dL (1.6-2.6); Sodium Level 137 mmol/L (136-145)
[2023-09-04 11:49] LABS: Hemoglobin A1c 5.9 % (3.8-5.6)
[2023-09-05 06:09] LABS: Fructosamine 211 umol/L (0-285)
[2023-09-18] VITALS (9 sets, daily range): BP systolic 119–151; BP diastolic 70–86; PULSE 88–100; RESP 16; TEMP 36.1–37.1; O2SAT 98–100; BMI 28.8
[2023-09-18 09:13] LABS: Bedside Glucose 102 mg/dL (74-106)
[2023-09-18] MEDS: Gabapentin 600 MG Tablet PO (09:42)
[2023-09-18] MEDS: Scopolamine 1mg/72hr Patch 1 PATCH TD (09:42)
[2023-09-18] MEDS: Lactated Ringers 1,000 ML 15 ML IV (09:42)
[2023-09-18] MEDS: Magnesium 2 GM for ERAS IV (09:43)
[2023-09-18] MEDS: Acetaminophen 500 MG Tablet 1000 MG PO ×2 (09:43→17:01)
[2023-09-18] MEDS: Vancomycin HCl 1,250 MG in 0.9% Normal Saline (250mL Bag) 250 ML 167 MG IV (09:49)
--- NOTE | 2023-09-18 10:42 | HP.PCM_ITS ---
History and Physical Date of Admission: 09/18/23 [facility] [id number] [place] [address] OFFICE VISIT Date of Service: 08/01/23 MR#: [id number] Acct: [id number] Name: JACK JIMENEZ Rep #: [id number] : 1955 Provider: Dr. Gerardo Bob DO Age/Sex: 68/F [place] [facility] [place] Status: Signed with Addenda ADDENDUM by Dr. Gerardo Bob DO on 08/01/23 at 1038 Assessment and Plan Assessment and Plan Plan Risks, benefits and alternatives of surgery reviewed including but not limited to bleeding, infection, nerve, artery and/or tissue damage, fracture, VTE, me chanical feel of the knee, continued pain, stiffness and expected post-operative course. 08/01/23 1038 <Electronically signed by Gerardo Bob DO> Date Gerardo Bob DO cc: ~* Signed Intake Vital Signs 06/28/2213:34 08/01/2309:59 Height 5 ft 7 in 5 ft 7 in Weight: 185 lb BMI 29.0 Intake Visit Reasons: right knee Chief Complaint: right knee Is patient in pain?: Yes Allergies Penicillins Allergy (Verified 08/01/23 10:02) Anaphylaxis Medications naproxen 250 mg tablet 250 mg PO BIDCM #60 tabs 06/29/22 [Rx Confirmed 08/01/23] PFSH Medical History Anxiety Fall GERD (gastroesophageal reflux disease) Recent fracture of hip Rheumatoid arthritis Smoker Tobacco dependence due to cigarettes Surgical History History of right hip hemiarthroplasty S/P removal of ovarian cyst Status post hip surgery Social History Smoking Status: Current every day smoker tobacco type: cigarettes HPI right knee Details: Parts of this documentation were recorded by a scribe, this documentation accu rately reflects the service provided and the decisions made by me, Dr. Gerardo Bob, DO 08/01/23 0958. JACK JIMENEZ is a 68 year old F here today for right knee pain. Patient states that she continues to have right knee pain. She ambulates with an antalgic gait and a cane. She has increased pain knee range of motion. Patient has a grinding into her knee. She has increased pain with sitting. She takes aleve for pain as needed. Patient would like to discuss a total knee arthroplasty. Ortho Exam General General: Yes no acute distress Neurologic: Yes alert and Yes oriented x3 Psychologic: Yes reasonable and appropriate Right Knee Skin/Wound: Yes CDI, No erythema, No ecchymosis and No swelling Homans Sign: No Knee ROM: Yes ROM-Extension -20 to 0 (-20) and Yes ROM-Flexion 0-140 (98) Examination: Yes Med jt line tenderness, Yes Lat jt line tenderness and Yes Crepitus Stability: NML: Valgus 0, NML: Valgus 30, NML: Varus 0 and NML: Varus 30 Patella Translation: 1 KNEE: foot ER. good ankle ROM Left Knee Patella Translation: 1 Head: Normocephalic Atraumatic Chest: symmetrical rise, non-labored breathing, no audible wheeze Abdomen: no guarding, non-rigid Supplemental Info 09/15/2022 x-ray right knee severe joint space narrowing medial and lateral Coding Level of Care Code Off vis,est,level 4 Diagnoses Primary osteoarthritis of right knee M17.11 Osteoarthritis type: primary Assessment and Plan Assessment and Plan (1) Osteoarthritis of right knee: Qualifiers: Osteoarthritis type: primary Qualified Code(s): M17.11 - Unilateral primary osteoarthritis, right knee Plan Spoke with the patient about the anatomy of her knee and etiology of her pain. She has osteoarthritis and is a candidate for a total knee arthroplasty. Spoke with the patient about the surgery procedure, recovery and risks. Patient might have a mechanical feel. Recommended the patients surgery is done as inpatient due her her age , she lives alone and has many stairs at her home and has rheumatoid arthritis. Patient should stop aleve 7 days prior to procedure. Patient will use a walker post op to help with ambulation. She will be pleased with her surgery around 3 months but she will continue to improve up to 2 years. She will do formal physical therapy to prevent stiffness. Recommended she work on knee range of motion prior to surgery. Patient will need to take an antibiotic prior to any dental procedures for a year. She will need a dental clearance and need a tooth pulled prior to surgery. Spoke with the patient about iovera which she would like to do if covered by insurance. She might have numbness over her lateral knee after surgery. She will contact our office once she has dental clearance from [facility]. Follow up for iovera or sooner if pain, swelling, numbness or associated symptoms, or concerns develop. All questions answered. Patient in agreement of plan. 08/01/23 1038 <Electronically signed by Gerardo Bob DO> Date Gerardo Bob DO Cosigner Signature: Date (if applicable) CC: ~I have examined the patient and the H&P has been reviewed. There are no clinical changes since date of exam.
--- NOTE | 2023-09-18 11:00 | KNEE_PTH ---
PATIENT: JACK JIMENEZ LOC: [facility] [place] U#:[id number] AGE/SX: 68/F ROOM: RE09/18/[address]: Dr. Gerardo Bob DO : 1955 BED: DIS: 09/18/2023 SPEC #: [id number] RECD: 09/19/23 07:53 STATUS: CAITLIN TEQUILA #: [id number] MILVIA: 09/18/23 11:[address]: Gerardo Bob DEPT: SURGICAL PATHOLOGY RECD BY: Alicia Jacobsen ENTERED: 09/19/23 07:53 SP TYPE: TOTAL KNEE OTHR DR: No Primary Care Phys Tissues: Right knee Procedures: Decalcification bone/plaque Surgery Specimen Level IV HEADER OPERATION: ERAS, right total knee replacement robotic arm assisted PRE-OP DIAGNOSIS: Osteoarthritis of right knee TISSUE SUBMITTED: Right patella bone and tissue MICROSCOPIC DIAGNOSIS Bone and tissue of right knee, total knee replacement: Severe degenerative joint disease. Mild synovial hyperplasia. AM:dottie 09/25/2023 MICROSCOPIC DESCRIPTION Slides are reviewed. GROSS DESCRIPTION Received is one container designated bone and soft tissue right knee. The specimen consists of multiple fragments of hendrickson-yellow bone measuring in aggregate 10.0 x 10.0 x 3.0 cm. Also in the specimen container are multiple fragments of yellow-white soft tissue measuring in aggregate 7.0 x 7.0 x 2.5 cm. A number of bony fragments contain articular surfaces consistent with tibial plateau and femoral condyle and displaying prominent osteophyte formation and bone erosion. Form Maker Plaster sections are submitted in two cassettes as follows: 1 - soft tissue, 2 - bone after decalcification. / SJ:dottie 09/19/2023 TC:5 [facility]: [id number], [id number]
[2023-09-18] MEDS: TXA 1000mg in NS100 100ml (IVPB at Incision) 660 MG IV (12:03)
[2023-09-18] MEDS: dexAMETHasone 10 MG/ML Vial IV (12:19)
[2023-09-18] MEDS: TXA 1000mg in NS100 100ml (IVPB at Closure) 660 MG IV (12:32)
[2023-09-18] MEDS: Bupivacaine 0.5% PF 10 ML VIAL (13:20)
[2023-09-18] MEDS: dexAMETHasone 4 MG/ML Vial (13:20)
[2023-09-18] MEDS: 0.9% Normal Saline (Pres. free 10 ML Vial (13:20)
[2023-09-18] MEDS: Epinephrine (1 mg/ml) 1 MG/ML VIAL (13:20)
--- NOTE | 2023-09-18 14:08 | PCM.OP.BLANK ---
Operative Report Date of Procedure: 09/18/23 Preoperative diagnosis: Right knee DJD Postoperative diagnosis: Same Procedure: Right total knee arthroplasty CT guided Robotic Assisted Implant: [place] triathlon press fit, femoral component size 4, tibial baseplate size 4, asymmetric patella size 32, polyethylene X3 size 9 CS Anesthesia: Spinal with adductor canal block Tourniquet time: 12 minutes at 300 mmHg Complications: None Condition: Stable to PACU Estimated blood loss: 175 cc Early Childhood Associate Thien Rogel. My physician data entry assistant was a vital part of this case. He was important in appropriate retraction during the case, and protection of soft tissues during procedure. His intimate knowledge of the case and my steps aided in safe and expedient completion of the procedure as well as appropriate position of the extremity during the case. He was also vital in assisting with closure under my direct supervision. Indication for procedure: This is a 68-year-old female with long standing degenerative joint disease of the knee who has failed conservative treatment and wished to proceed with elective total knee arthroplasty. Risk benefits and alternatives were reviewed including; risk of bleeding, infection, nerve artery and tissue damage, continued pain, postoperative stiffness, venous thromboembolism, need for postoperative rehabilitation, mechanical feel to the knee, and expected postoperative course. The pre- operative CT and templating was performed with component sizing. Procedure: The patient was met in the preoperative holding area. The operative extremity was identified by both patient and physician and was marked. Patient was met by anesthesia. An adductor canal block was placed by anesthesia postoperatively the patient was brought back to the operating room on a wheeled cart and transferred to the operating table in the supine position. Anesthesia was started. A well-padded tourniquet was placed on the operative extremity. The patient was prepped and draped in the usual sterile fashion. A timeout was called to ensure the proper patient procedure and extremity were being contemplated. An esmarch was used to exsanguinate the extremity. The tourniquet was inflated. A 10 blade scalpel was used to make a midline incision down through the skin and subcutaneous tissue. Skin retractors placed. Bovie and Aquamantis were used to perform meticulous hemostasis. full-thickness flaps were elevated medial and lateral along the joint capsule. A deep blade scalpel was used to perform a medial parapatellar arthrotomy. The knee was brought to full extension. A bovie was used to release the soft tissues off the most proximal aspect of the medial tibial plateau, a three-quarter inch curved osteotome was also used in this process. The infrapatellar fat pad was excised. The suprapatellar fat pad was excised partially anteriorolateraly and portion the anterioromedial pad was elevated from the femur. At this point our intra-articular femoral array was placed at a 45 degree angle proximal and posterior to the medial epicondyle. femoral checkpoint was placed at this time. Our tibial array was placed greater than 1 hands breath below the incision at a 20 degree angle stab incisions were made with a 15 blade scalpel and pins were placed and attached to the tibial array , tibial checkpoint was placed in the proximal tibial metaphysis. Tourniquet was let down. At this point registration whitlock were taken throughout the knee . Once the knee was registered we then tensioned the medial and lateral ligaments in extension and 90 degrees of flexion. We then used these numbers to adjust our components within parameters to balance the knee in both flexion and extension once this was done on our monitor we then proceeded with using the robotic arm to make our tibial plateau cut, anterior and posterior chamfer and distal femur cuts. we removed the cut fragments with the use of a bovie and Zenia, we did use a lamina software sales executive to insure we visualized and removed all posterior osteophytes and at this time also used the Aquamantis on the posterior joint capsule. we then trialed and achieved the desired plan with a well-balanced knee. we used the green probe to vasile the corresponding tibial rotation based on our CT template. Lug holes were drilled in the femur the tibia preparation was completed with the appropriate sized base plate pinned based on previous rotation vasile. An appropriate sized fin punch was used on the tibia and 4 corner drill was used for the press fit component and the patella was prepared by first using a caliper to ensure sufficient bone stock and a patellar reamer to remove the desired amount of bone. lug holes drilled for an asymmetric poly. We then brought the knee through range of motion with excellent patellar tracking. We thoroughly irrigated the knee. Trial components were removed a posterior capsular injection was preformed with our standard cocktail. In addition the aqua Mantis was also used to aid in hemostasis. Betadine rinse was allowed to sit and washed out completely. Components were press-fit into place. Aricept rinse was then used followed by several more liters of irrigation after it was allowed to sit. The joint capsule was closed with #1 Ethibond [id number]-hacad's in the upper part of the arthrotomy and #1 Vicryl in the lower part of the arthrotomy. , Followed by 2-0 Vicryl in the subcutaneous tissues with ernestina in the skin. Arrays and checkpoints were removed prior to closure all counts were correct stab incisions were closed with a staple standard dressing in the form of Mepilex AG for the main incision and a small Mepilex over the pin holes. Thigh-high RAJ hose applied over top of dressing. Patient tolerated the procedure well and was directed to PACU in stable condition . There were no intraoperative complications.
--- NOTE | 2023-09-18 14:09 | DCINST_ITS ---
Discharge Instructions Diet Discharge Diet: No restrictions Dressing / Incision Call your doctor if you observe: Shortness of breath and Chest pain Additional Dressing/Incision Instructions:: Ice and elevate lower extremities 2 weeks while not ambulating. Ambulation is encouraged. Weight bearing as tolerated. Use assistive devise for stability. Encourage FULL knee extension and flexion 1 time EVERY time you get up and down and MULTIPLE times per day. No showering until 72 hours after surgery. Begin showering postop day #3. Remove the dressing prior to shower and gently wash with warm water and antibacterial soap then pat dry and place abdominal pad (or plain gauze) and RAJ hose over top. This is to be done daily. Do not submerge for 3 weeks. If not showering daily after the initial 72 hours then you must clean incision and change dressing daily. Do not allow animals near the incision area. Keep clean. Follow anti-coagulation recommendations as prescribed. Do not take any NSAIDs while on blood thinner. Do not take any additional narcotic pain medication other than what was prescribed on your surgery day without discussing with physician. Narcotic medication can be addictive. Do not drink alcohol while taking narcotics. Supplement narcotic prescription with acetaminophen 1000 mg 4 times a day. Start physical therapy. If you are not currently scheduled for physical therapy or you are unsure of appointment time please call office [facility] to arrange. Call Dr. Bob with any concerns. Follow Up Care Please Follow Up With: Gerardo Bob DO When: 2 weeks Test Results: Test results from this visit will be discussed in further detail at your follow- up appointment, if applicable. Discharge Plan Admission Primary Reason for Your Visit: Right total knee Attending Provider: Gerardo Bob Primary Care Provider: Care PhysicianFelicia Primary Discharge Orders/Prescriptions Prescriptions: New acetaminophen 500 mg Tablet 1,000 mg PO Q8 Qty: 100 0RF oxycodone 5 mg tablet 5 - 10 mg PO Q4H PRN (Reason: pain) 7 Days Qty: 60 0RF Eliquis 2.5 mg tablet 2.5 mg PO BID Qty: 28 0RF Rx Instructions: Begin morning after surgery clindamycin HCl 300 mg capsule 600 mg PO Q8H Qty: 4 0RF Rx Instructions: Take 2 tabs 9 PM night of surgery and 2 tabs 7 AM morning after surgery. Continued Fruit and Vegetable Daily 5-6-150 mg capsule 2 cap PO DAILY Discontinued naproxen sodium [Aleve] 220 mg tablet 220 mg PO BID PRN (Reason: pain) Referrals / Follow Up: Care Physician,No Primary [Primary Care Provider] - Disposition Disposition (needs filled in before D/C Order can be placed): Home, Self Care
--- NOTE | 2023-09-18 14:15 | RAD_ITS ---
STUDY: X-RAY - RIGHT KNEE REASON FOR EXAM: Female, 68 years old. Follow-up after total knee arthroplasty. TECHNIQUE: 2 view(s) of the knee. COMPARISON: September 15, 2022 FINDINGS: There is a 3 component total knee arthroplasty in anatomic position. There are expected post-operative findings. There are no complications. No other significant abnormality is identified. RAD/Knee 1 or 2 Views IMPRESSION: Total knee arthroplasty in anatomic alignment without complications. Electronically Signed: Corona Sears MD at 14:36 EST ,
[2023-09-18] MEDS: Lactated Ringers 1,000 ML 125 ML IV (14:31)
[2023-09-18] MEDS: Clindamycin 900 MG/50 ML BAG 75 MG IV (16:14)
== END 2023-09-18 17:59 | disposition home or self-care (01) ==
LOC: SDC 08:27 → AC 08:28
PROVIDERS: Referring Provider Orthopaedic Surgery; Visit Provider Orthopaedic Surgery
PROC: 0SRC0JZ Replacement of Right Knee Joint with Synthetic Substitute, Open Approach (ICD-10-PCS; CPT 27447; principal; 2023-09-18 10:30)
DX: M17.11 Unilateral primary osteoarthritis, right knee (principal); R73.01 Impaired fasting glucose; F17.210 Nicotine dependence, cigarettes, uncomplicated
CPT/HCPCS: 27447; S2900; 01402; 64447; 36415; 73560; 80048; 82962; 82985; 83036; 83735; 85025; 85610; 85730; 86850; 86900; 86901; 87077; 87081; 88305; 88311; 93005; 97162; C1776; J7050; J7120; J2405; J3490

== ENCOUNTER 2023-10-23 10:00 | Outpatient (RCR) | payer MEDICARE, OTHER, SELFPAY ==
--- NOTE | 2023-09-26 11:31 | HP.PTEVAL ---
Patient's Visit Information Visit Information Visit Information: JACK JIMENEZ is a 68 year old F referred to Physical Therapy by Dr. Gerardo Bob DO with a diagnosis of UNILATERAL PRIMARY OSTEOARTHRITIS ,RIGHT KNEE. Date of Evaluation: 09/26/23 Physical Therapist: Alfredo Paulino PT, Cert MDT, OCS Visit Plan Frequency: 2x /Week Duration: 4 Weeks Plan: PT INTERVETIONS ROM,FLEXABILITY ,STRENGTHENING EX'S QUADS/HAMS/HIP ,GAIT/BALANCE TRAINING ,CP ,AND FUNCTIONAL STRENGTHNEING Subjective Subjective: This 68 y/o female presents to physical therapy with right s/p right TKA on 09/18/23 at [facility] by Dr Bob and d/c 09/18/23. Patient d/c with fww . Patient stopped pain medication. Patient has had ~ 1 year ,tried injection had x-rays showed severe DJD. Patient denies paresthesia/tingling -. Patient has taken shower and I with dressing. Patient has dressing with ernestina.Patient has 1 story 13 steps with rail. Tub/shower set up with seat . Patient currently stays with [facility] with [facility]. Patient did not try PT . Patient has h/o fx s/p right hemiarthroplasty last year. Patient condition affects QOL and function /housework SOCIAL: single VOCATION: retired Pain Right Knee: Pain Intensity (Out of 10): 2 Pain Intensity Range: 10 Objective Objective: POSTURE: mild forward posture ,knee valgus hip/knees flexed GAIT: ambulates with forward posture hips/knees flexed slow keyon, slight knee valgus BALANCE: fair+ with fww JOINT LINE PATELLA: 42.3 cm 6 ABOVE JOINT LINE: 50,7 AAROM: supine knee flexion 5-70 degrees supine flexion MMT: (peak force) quads 9.2 ,hamstrings 11.4 STAIRS: one steps at time with rails Balance/Special Test Scores Lower Extremity Functional Score: 16 TUG Test Time Seconds: 17.5 WOMAC Total Score: 51 WOMAC Percentatge: 44.5700 Goals Goal 1:: Patient to be I with HEP for TKA Goal Time Frame: 4-6 Weeks Goal 2:: Patient to normalize gait pattern with cane community distances Goal Time Frame: 4-6 Weeks Goal 3:: Patient to improve AROM supine knee flexion 0-100 degrees to improve stairs Goal Time Frame: 4-6 Weeks Goal 4:: Patient to improve peak force quads/hams 10-15 # strength to improve function Goal Time Frame: 4-6 Weeks Goal 5:: Patient improve LFES score by 10 points to improve QOL and function Goal Time Frame: 4-6 Weeks Goal 6:: Patient to improve WOMAC score by 10 points to improve overall function. Rehabilitation Potential Physical Therapy Diagnosis: This patient under s/p TKA on 09/18/23 with pain ,decrease gait ,stairs , ROM and weakness thus will benefit from skilled PT Rehabilitation Potential: Good Anticipated Interventions Patient/Client Instruction: Educate patient on: Condition and Plan of Care For the Purpose of:: To decrease pain, To increase ROM, To improve muscle performance and motor function, To improve ability to perform ADL's, To increase tolerance to activity/condition/position, To improve ability of physical actions for home/community/work/leisure, To improve gait and locomotor functions, To improve health of tissue, To decrease soft tissue restriction, To increase flexibility/ROM, To improve endurance, To improve balance, To reduce risk of recurrence and To improve tolerance to ADL's Therapeutic Exercise to Include: Strength training, Postural training, Flexibilty training, Gait and locomotor training, Passive ROM and Active ROM Comment: QUADS/HAMS/HIP For the Purpose of:: To decrease pain, To increase ROM, To improve muscle performance and motor function, To improve ability to perform ADL's, To increase tolerance to activity/condition/position, To improve performance and independence with ADL's, To improve ability of physical actions for home/community/work/leisure, To improve gait and locomotor functions, To improve health of tissue, To increase flexibility/ROM, To improve endurance and To improve balance Text: Thank you for the opportunity to evaluate your patient. For Medicare and Medicare HMO plans, please review the plan of care and approve it. It will need to be FAXED BACK to us at [phone] for Medicare purposes. For Medicare only, by signing this I certify the plan of care. Please let me know if there are questions or concerns regarding this plan of care. Physician Signature: Date:
--- NOTE | 2023-10-23 10:33 | HP.PTDCSUM ---
Discharge Summary D/C summary: It has been my pleasure to treat JACK JIMENEZ referred by Dr. Gerardo Bob DO, with the diagnosis of UNILATERAL PRIMARY OSTEOARTHRITIS ,RIGHT KNEE for a total of 9 visit(s). Discharge Date: 10/23/23 Please see the following information for a summary of their discharge status. Subjective Subjective: Ready for d/c due to weather Pain Right Knee: Pain Intensity (Out of 10): 0 Overall Improvement % Improvement: 60 Objective Objective/Function: POSTURE: mild forward posture ,knee valgus hip/knees flexed GAIT: ambulates with forward posture hips/knees flexed slow keyon, slight knee valgus BALANCE: gait with cane JOINT LINE PATELLA: 40.3 cm 6 ABOVE JOINT LINE: 48 AAROM: supine knee flexion 5 degrees supine flexion MMT: (peak force) quads 24.8 ,hamstrings 29.5 STAIRS: one steps at time with rails with rail Goals Goal 1:: Patient to be I with HEP for TKA Goal Progress: Goal Met Goal 2:: Patient to normalize gait pattern with cane community distances Goal Progress: Goal Met Goal 3:: Patient to improve AROM supine knee flexion 0-100 degrees to improve stairs Goal Progress: Goal Met Goal 4:: Patient to improve peak force quads/hams 10-15 # strength to improve function Goal Progress: Goal Met Goal 5:: Patient improve LFES score by 10 points to improve QOL and function Goal Progress: Goal Met Goal 6:: Patient to improve WOMAC score by 10 points to improve overall function. Plan Plan: D/C D/C Information Discharge Comments: HEP d/c sentence: If there are questions or concerns regarding this patient's physical therapy, please feel free to call me at [phone]. Thank you for the referral of this patient. Sincerely, Alfredo Paulino, PT, Cert MDT, OCS Balance/Gait/Functional tests Balance/Special Test Scores Lower Extremity Functional Score: 47 TUG Test Time Seconds: 12.5 Tug Test: <20 sec.=mostly independent WOMAC Total Score: 6 WOMAC Percentage: 93.4800 Improvement % Improvement: 60
== END 2023-10-23 19:00 | disposition home or self-care (01) ==
LOC: PT 10:00
PROVIDERS: Visit Provider Orthopaedic Surgery
DX: M17.11 Unilateral primary osteoarthritis, right knee (principal)
CPT/HCPCS: 97110; 97162; 97530